=== PATIENT | male | born 1935 | race Hispanic/Latino ===

== ENCOUNTER 2016-10-09 10:17 | Inpatient (IN) | payer MEDICARE, BC ==
--- NOTE | 2016-10-09 10:34 | ED PDOC ---
Arrival/HPI - General Chief Complaint: Dizziness/Lightheaded Time Seen by Provider: 10/09/16 10:18 Historian: Patient - History of Present Illness Narrative History of Present Illness (Text): 10/09/16 10:31 Nishant Duggan, a 81 year old male, whose past medical history includes seizures (on Dilantin), is brought to the emergency department by EMS because of dizziness. Patient reports he felt "room spinning" a few hours ago. Patient denies any pain, nausea, vomiting, or any other complaints at this time. Time/Duration: 1-3 hours Symptom Onset: Sudden Symptom Course: Unchanged Activities at Onset: Rest Modifying Factors (Text): none Context: Home Associated Symptoms (Text): none Past Medical History - Provider Review Nursing Documentation Reviewed: Yes - Infectious Disease Hx of Infectious Diseases: None - Tetanus Immunization Tetanus Immunization: Unknown - Neurological Hx Seizures: Yes - Psychiatric Hx Depression: No Hx Emotional Abuse: No Hx Physical Abuse: No Hx Substance Use: No - Anesthesia Hx Anesthesia: No Hx Anesthesia Reactions: No Hx Malignant Hyperthermia: No - Suicidal Assessment Feels Threatened In Home Enviroment: No Family/Social History - Physician Review Nursing Documentation Reviewed: Yes Family/Social History: No Known Family HX Smoking Status: Never Smoked Hx Alcohol Use: No Hx Substance Use: No Hx Substance Use Treatment: No Allergies/Home Meds Allergies/Adverse Reactions: Allergies No Known Allergies Allergy (Verified 10/09/16 10:24) Home Medications: Home Meds Medication Instructions Recorded Confirmed Aspirin 81 mg PO DAILY 08/01/12 10/09/16 Gabapentin [Neurontin] 1,200 mg PO DAILY 08/01/12 10/09/16 Phenytoin Sodium Extended 400 mg PO DAILY 08/01/12 10/09/16 [Dilantin] Review of Systems - Physician Review All systems were reviewed & negative as marked: Yes - Review of Systems Cardiovascular: absent: Chest Pain Gastrointestinal: absent: Abdominal Pain, Nausea, Vomiting Neurological: Dizziness Physical Exam Vital Signs Reviewed: Yes Vital Signs Temp Pulse Resp BP Pulse Ox 10/09/16 11:40 73 16 124/68 97 10/09/16 10:17 97.5 F L 79 17 103/57 L 97 - Systems Exam Head: Present: Atraumatic, Normocephalic Pupils: Present: Other (horizontal nystagmus) Extroacular Muscles: Present: EOMI Conjunctiva: Present: Normal Mouth: Present: Moist Mucous Membranes Neck: Present: Normal Range of Motion Respiratory/Chest: Present: Clear to Auscultation, Good Air Exchange. No: Respiratory Distress, Accessory Muscle Use Cardiovascular: Present: Regular Rate and Rhythm, Normal S1, S2. No: Murmurs Abdomen: Present: Normal Bowel Sounds. No: Tenderness, Distention, Peritoneal Signs Upper Extremity: Present: Normal Inspection. No: Cyanosis, Edema Lower Extremity: Present: Normal Inspection. No: Edema Neurological: Present: GCS=15, CN II-XII Intact, Speech Normal, Motor Func Grossly Intact, Normal Sensory Function, Normal Cerebellar Funct, Other ((+) horizontal nystagmus) Skin: Present: Warm, Dry, Normal Color. No: Rashes Psychiatric: Present: Alert, Oriented x 3, Normal Insight, Normal Concentration Medical Decision Making ED Course and Treatment: 10/09/16 10:35 Impression:vertigo r/o central vs peripheral Differential Diagnosis include but are not limited to: Plan: -- EKG -- CT head -- Chest Xray -- Urinalysis -- Labs -- Reassess and disposition Prior Visits: Notes and results from previous visits were reviewed. Patient reported to the emergency department on 08/01/12 for evaluation of slip and fall incident. Progress Notes: EKG: Ordered, reviewed, and independently interpreted the EKG. Rate : 85 BPM Rhythm : NSR Interpretation : No ST/T changes Comparison : No previous EKG for comparison. Chest Xray: Creator : Brian No MD FINDINGS: LUNGS: Marked elevation left hemidiaphragm could represent eventration and/or sequela of subpulmonic effusion ; clinical correlation recommended. . Compressive type atelectasis left lung base. Small calcified granuloma left lung apex again noted. PLEURA: No apparent pneumothorax. CARDIOVASCULAR: Heart size is difficult to assess due to silhouetting left cardiac border OSSEOUS STRUCTURES: No significant abnormalities. VISUALIZED UPPER ABDOMEN: Normal. OTHER FINDINGS: None. IMPRESSION: Marked elevation left hemidiaphragm could represent eventration and/ or sequela of subpulmonic effusion ; clinical correlation recommended. Compressive type atelectasis left lung base. Small calcified granuloma left lung apex again noted. CT head: Creator : Brian No MD FINDINGS: HEMORRHAGE: No acute parenchymal, subarachnoid or extra-axial hemorrhage. BRAIN: Minor chronic periventricular white matter ischemic changes. No acute intracranial hemorrhage. Minor chronic white matter ischemic changes. Suspected few scattered bilateral basal nuclei and brainstem lacunar type infarcts Moderate generalized volume loss with enlargement of the ventricles and sulci VENTRICLES: Ex vacuo dilatation of the ventricles due to volume loss. No evidence of obstructive hydrocephalus. CALVARIUM: No acute calvarial fracture seen. Note made of a small elliptical shaped nonspecific density within the left occipito parietal scalp. PARANASAL SINUSES: Complete opacification right maxillary antrum with linear and polypoid like mucosal thickening left maxillary antrum. There is mild moderate mucosal thickening also seen within the right ethmoid air complex opacification of a few left sided ethmoid air cells. Mucosal thickening extends superiorly into the inferior margins of the frontal sinus. . There is also asymmetry of the nasal mucosa of right-sided which is hypertrophied in appearance. Direct visualization may be prudent for further evaluation to exclude nasal polyps. MASTOID AIR CELLS: Unremarkable as visualized. No inflammatory changes. OTHER FINDINGS: Note is made of a small elliptical shaped density with peripheral calcified appearance abutting and/or arising from the nasal bones. Rule out prior rhinoplasty versus posttraumatic on sequela. . IMPRESSION: No acute intracranial hemorrhage. Minor chronic white matter ischemic changes. Suspected few scattered bilateral basal nuclei and brainstem lacunar type infarcts Mucosal thickening changes seen within the aforementioned paranasal sinuses. 10/09/16 11:57 pt with persistent symptoms, will need neuro eval to r/o posterior cva - Lab Interpretations Lab Results: 10/09/16 10:38 10/09/16 10:38 Lab Results 10/09/16 10:38: WBC 8.2, RBC 4.50, Hgb 13.4 L, Hct 39.9 L, MCV 88.7, MCH 29.8, MCHC 33.6, RDW 14.1, Plt Count 249, MPV 9.6, Gran % 65.6, Lymph % (Auto) 17.3 L , Winkler % (Auto) 9.4 H, Eos % (Auto) 7.2 H, Baso % (Auto) 0.5, Gran # 5.38, Lymph # 1.4, Winkler # 0.8 H, Eos # 0.6, Baso # 0.04, PT 12.9 H, INR 1.19 H, APTT 26.1, Sodium 137, Potassium 4.5, Chloride 103, Carbon Dioxide 23, Anion Gap 16, BUN 16, Creatinine 1.0, Est GFR ( Amer) > 60, Est GFR (Non-Af Amer) > 60 , Random Glucose 127 H, Calcium 8.7, Magnesium 1.9, Total Bilirubin 0.5, AST 30 , ALT 30, Alkaline Phosphatase 160 H, Lactate Dehydrogenase 426, Total Creatine Kinase 36, Troponin I < 0.01, Total Protein 7.8, Albumin 3.8, Globulin 4.0, Albumin/Globulin Ratio 1.0 L, Phenytoin 13 - RAD Interpretation Radiology Orders: 10/09/16 10:27 HEAD W/O CONTRAST [CT] Stat 10/09/16 10:28 CHEST PORTABLE [RAD] Stat - EKG Interpretation Interpreted by ED Physician: Yes Type: 12 lead EKG - Medication Orders Current Medication Orders: Aspirin (Ecotrin) 81 mg PO DAILY [facility] Fludrocortisone Acetate (Florinef) 0.1 mg PO DAILY [facility]LEN[facility] Last Admin: 10/10/16 11:03 Dose: 0.1 MG Gabapentin (Neurontin) 1,200 mg PO DAILY [facility] Dextrose/Sodium Chloride (Dextrose 5%/0.9% Ns 1000 Ml) 1,000 mls @ 60 mls/hr IV [id number] MARLENE Stop: 10/10/16 17:54 Last Admin: 10/10/16 01:18 Dose: 60 MLS/HR eMAR Start Stop Document 10/10/16 01:18 LEATHA (Rec: 10/10/16 01:19 LEATHA [id number]) Intravenous Solution Start Date 10/10/16 Start Time 01:18 Phenytoin Sodium (Dilantin) 400 mg PO DAILY [facility] Discontinued Medications Aspirin (Aspirin) 325 mg PO STAT STA Stop: 10/09/16 11:48 Last Admin: 10/09/16 11:59 Dose: 325 MG Aspirin (Aspirin Chewable) 81 mg PO DAILY [facility] Last Admin: 10/10/16 09:23 Dose: 81 MG Gabapentin (Neurontin) 300 mg PO TID [facility]E PRN Reason: Protocol Last Admin: 10/09/16 14:27 Dose: 300 MG Behavioural Document 10/09/16 14:27 DL (Rec: 10/09/16 14:27 DL [id number]) Maintenance Maintenance Dose Yes Gabapentin (Neurontin) 300 mg PO QID [facility]LENE PRN Reason: Protocol Last Admin: 10/10/16 09:23 Dose: 300 MG Dextrose/Sodium Chloride (Dextrose 5%/0.9% Ns 1000 Ml) 1,000 mls @ 200 mls/hr IV .Q5H MARLENE Stop: 10/09/16 14:35 Last Admin: 10/09/16 14:25 Dose: 200 MLS/HR eMAR Start Stop Document 10/09/16 14:25 DL (Rec: 10/09/16 14:25 DL [id number]) Intravenous Solution Start Date 10/09/16 Start Time 13:45 Iohexol (Omnipaque 350 150 Ml) Confirm Administered Dose 150 ml .ROUTE .STK-MED ONE Stop: 10/10/16 13:10 Meclizine HCl (Antivert) 50 mg PO STAT STA Stop: 10/09/16 10:32 Last Admin: 10/09/16 10:47 Dose: 50 MG Non-Formulary Medication (Aspirin [Aspirin]) 81 mg PO DAILY MARLENE Non-Formulary Medication (Gabapentin [Neurontin]) 1,200 mg PO DAILY [facility] Phenytoin (Dilantin) 400 mg PO DAILY [facility] Phenytoin (Dilantin) 200 mg PO BID [facility]LENE Last Admin: 10/10/16 09:23 Dose: 200 MG NIHSS Scale ([place]) Time Performed: 11:48 - How Severe is the Stoke Baseline Level of Consciousness: 0=Alert LOC to Questions: 0=Both comments correct LOC to commands: 0=Obeys both correctly Best Gaze: 0=Normal Visual: 0=No visual loss Facial: 0=Normal Motor Arm - Left: 0=No drift Motor Arm - Right: 0=No drift Motor Leg - Left: 0=No drift Motor Leg - Right: 0=No drift Limb Ataxia: 0=Absent Sensory: 0=Normal Best Language: 0=No aphasia Dysarthia: 0=Normal articulation Extinction & Inattention (Neglect): 0=Normal, no object Score: 0 Risk Level: No Stroke Risk rTPA Inclusion/Exclusion - Refusal of Treatment Patient Refused Treatment: No - Inclusion Criteria for Altepase Patient is 18 years or Older: Yes The Clinical Diagnosis of Ischemic Stroke That is Causing a Potentially Disabling Neurological Deficit: No Time of Onset is Well Established to be Less Than 270 Minute Before Treatment Would Begin: Yes Risk/Benefit Discussed With Patient/Family Member Present: No - Scribe Statement The provider has reviewed the documentation as recorded by the Scribe Patricia Breaux All medical record entries made by the Yovaniibe were at my direction and personally dictated by me. I have reviewed the chart and agree that the record accurately reflects my personal performance of the history, physical exam, medical decision making, and the department course for this patient. I have also personally directed, reviewed, and agree with the discharge instructions and disposition. Disposition/Present on Arrival - Present on Arrival Any Indicators Present on Arrival: No History of DVT/PE: No History of Uncontrolled Diabetes: No Urinary Catheter: No History of Decub. Ulcer: No History Surgical Site Infection Following: None - Disposition Have Diagnosis and Disposition been Completed?: Yes Diagnosis: Vertigo Disposition: HOSPITALIZED Disposition Time: 11:49 Patient Problems: Current Active Problems Problem Status Diagnosed Vertigo Acute Condition: STABLE
[2016-10-09 10:39] LABS: ADD MANUAL DIFF? NO
[2016-10-09 10:42] LABS: BASO # 0.04 K/mm3 (0.0-2.0); BASO % 0.5 % (0.0-3.0); EOS # 0.6 (0.0-0.7); EOS % 7.2 % (1.5-5.0); GRAN # 5.38 (1.4-6.5); GRAN % 65.6 % (50.0-68.0); HEMATOCRIT 39.9 % (42.0-52.0); LYMPH # 1.4 (1.2-3.4); LYMPH % 17.3 % (22.0-35.0); MEAN CELL VOLUME 88.7 fL (80.0-105.0); MEAN CORPUSCULAR HEMOGLOBIN 29.8 pg (25.0-35.0); MEAN CORPUSCULAR HGB CONC 33.6 g/dl (31.0-37.0); MEAN PLATELET VOLUME 9.6 fl (7.0-11.0); MONO # 0.8 (0.1-0.6); MONO % 9.4 % (1.0-6.0); PLATELET COUNT 249 10^3/uL (120.0-450.0); RED CELL DISTRIBUTION WIDTH 14.1 % (11.5-14.5); WHITE BLOOD COUNT 8.2 10^3/ul (4.5-11.0)
[2016-10-09 10:51] LABS: INR 1.19 (0.93-1.08); PARTIAL THROMBOPLASTIN TIME 26.1 Seconds (23.7-30.8)
[2016-10-09 11:09] LABS: ALKALINE PHOSPHATASE 160 U/L (38-133); ALT/SGPT 30 U/L (7-56); AST/SGOT 30 U/L (15-59); BILIRUBIN,TOTAL 0.5 mg/dL (0.2-1.3); BLOOD UREA NITROGEN 16 mg/dL (7-21); CALCIUM 8.7 mg/dL (8.4-10.5); CARBON DIOXIDE 23 mmol/L (21-33); CHLORIDE 103 mmol/L (98-107); GFR AFRICAN-AMERICAN > 60; GLUCOSE,RANDOM 127 mg/dL (70-110); MAGNESIUM 1.9 mg/dL (1.7-2.2); POTASSIUM 4.5 mmol/L (3.6-5.0); SODIUM 137 mmol/L (132-148); TOTAL PROTEIN 7.8 g/dL (5.8-8.3)
[2016-10-09 11:21] LABS: TROPONIN I < 0.01 ng/mL
--- NOTE | 2016-10-09 11:40 | CT ---
PROCEDURE: CT HEAD WITHOUT CONTRAST. HISTORY: dizziness COMPARISON: None available. TECHNIQUE: Axial computed tomography images were obtained through the head/brain without int Radiation dose: Total exam DLP = 774.23 MGy-cm. This CT exam was performed using one or more of the following dose reduction techniques: Automated exposure control, adjustment of the mA and/or kV according to patient size, and/or use of iterative reconstruction technique. FINDINGS: HEMORRHAGE: No acute parenchymal, subarachnoid or extra-axial hemorrhage. BRAIN: Minor chronic periventricular white matter ischemic changes. No acute intracranial hemorrhage. Minor chronic white matter ischemic changes. Suspected few scattered bilateral basal nuclei and brainstem lacunar type infarcts Moderate generalized volume loss with enlargement of the ventricles and sulci VENTRICLES: Ex vacuo dilatation of the ventricles due to volume loss. No evidence of obstructive hydrocephalus. CALVARIUM: No acute calvarial fracture seen. Note made of a small elliptical shaped nonspecific density within the left occipito parietal scalp. The PARANASAL SINUSES: Complete opacification right maxillary antrum with linear and polypoid like mucosal thickening left maxillary antrum. There is mild moderate mucosal thickening also seen within the right ethmoid air complex opacification of a few left sided ethmoid air cells. Mucosal thickening extends superiorly into the inferior margins of the frontal sinus. . There is also asymmetry of the nasal mucosa of right-sided which is hypertrophied in appearance. Direct visualization may be prudent for further evaluation to exclude nasal polyps. MASTOID AIR CELLS: Unremarkable as visualized. No inflammatory changes. OTHER FINDINGS: Note is made of a small elliptical shaped density with peripheral calcified appearance abutting and/or arising from the nasal bones. Rule out prior rhinoplasty versus posttraumatic on sequela. . IMPRESSION: No acute intracranial hemorrhage. Minor chronic white matter ischemic changes. Suspected few scattered bilateral basal nuclei and brainstem lacunar type infarcts Mucosal thickening changes seen within the aforementioned paranasal sinuses.
--- NOTE | 2016-10-09 12:00 | RAD ---
HISTORY: weakness COMPARISON: No prior studies available for comparison however correlation made with right and left shoulders dated 09/28/2012 which also partially imaged both lung apices. FINDINGS: LUNGS: Marked elevation left hemidiaphragm could represent eventration and/or sequela of subpulmonic effusion ; clinical correlation recommended. . Compressive type atelectasis left lung base. Small calcified granuloma left lung apex again noted. PLEURA: No apparent pneumothorax. CARDIOVASCULAR: Heart size is difficult to assess due to silhouetting left cardiac border OSSEOUS STRUCTURES: No significant abnormalities. VISUALIZED UPPER ABDOMEN: Normal. OTHER FINDINGS: None. IMPRESSION: Marked elevation left hemidiaphragm could represent eventration and/or sequela of subpulmonic effusion ; clinical correlation recommended. . Compressive type atelectasis left lung base. Small calcified granuloma left lung apex again noted.
[2016-10-09] MEDS ORDERED: Dextrose 5%/0.9% NS 1,000 ML IV SCH (13:45)
[2016-10-09 13:55] VITALS: BMI 24.3
[2016-10-09] MEDS: Phenytoin 100 mg/4 ml Oral Susp UD PO SCH (19:04)
--- NOTE | 2016-10-10 00:53 | CP.PCM.PN ---
Subjective - Date & Time of Evaluation Date of Evaluation: 10/10/16 Time of Evaluation: 00:51 - Subjective Subjective: Patient was seen for BP 97/41. He has no symptom. Denies chest pain, sob, nausea, sweating , palpitation, bleeding in stool, urine or vomiting. Had 1L D5NS earlier in day time for BP of 80/50 at about 1.45 PM. Medical record was reviewed. This 81 year old white male was admitted with dizziness. Has PMH of seizure disorder. Objective - Vital Signs/Intake and Output Vital Signs (last 24 hours): Temp Pulse Resp BP Pulse Ox 98.1 F 82 20 80/50 L 97 10/09/16 13:40 10/09/16 13:40 10/09/16 13:40 10/09/16 13:40 10/09/16 12:24 Intake and Output: 10/09/16 10/10/16 18:59 06:59 Intake Total 420 Output Total 800 Balance -380 - Medications Medications: Current Medications Aspirin (Aspirin Chewable) 81 mg PO DAILY [facility] Gabapentin (Neurontin) 300 mg PO QID [facility] PRN Reason: Protocol Last Admin: 10/09/16 21:37 Dose: 300 mg Phenytoin (Dilantin) 200 mg PO BID [facility] Last Admin: 10/09/16 19:04 Dose: 200 mg - Labs Labs: PT 12.9 Seconds (9.9-11.8) H 10/09/16 10:38 INR 1.19 (0.93-1.08) H 10/09/16 10:38 APTT 26.1 Seconds (23.7-30.8) 10/09/16 10:38 - Constitutional Appears: Well, No Acute Distress - Head Exam Head Exam: ATRAUMATIC, NORMAL INSPECTION, NORMOCEPHALIC - Eye Exam Eye Exam: Normal appearance - ENT Exam ENT Exam: Normal External Ear Exam - Neck Exam Neck Exam: Normal Inspection - Respiratory Exam Respiratory Exam: NORMAL BREATHING PATTERN - Cardiovascular Exam Cardiovascular Exam: absent: JVD - GI/Abdominal Exam GI & Abdominal Exam: absent: Distended - Rectal Exam Rectal Exam: Deferred - Extremities Exam Extremities Exam: Normal Inspection - Back Exam Back Exam: NORMAL INSPECTION - Neurological Exam Neurological Exam: Alert, Oriented x3 - Psychiatric Exam Psychiatric exam: Normal Affect, Normal Mood - Skin Skin Exam: Normal Color Assessment and Plan - Assessment and Plan (Free Text) Assessment: A/P:Dizziness. Hypotension. Hx Seizure disorder. Borderline anemia. 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 History ASHD. History Carotid artery occlusion. Continue D5NS @ 60 CC/Hr-1L. CBC,BMP, troponin, EKG stat. EKG:NSR, 1* AV block -new. Old inf wall CA? H & H have dropped insignificantly, will repeat CBC in AM. Trop <0.01.
[2016-10-10] MEDS ORDERED: Dextrose 5%/0.9% NS 1,000 ML IV SCH (01:15)
[2016-10-10 01:34] LABS: ADD MANUAL DIFF? NO
[2016-10-10 01:48] LABS: BASO # 0.03 K/mm3 (0.0-2.0); BASO % 0.5 % (0.0-3.0); EOS # 0.6 (0.0-0.7); EOS % 10.1 % (1.5-5.0); GRAN # 3.25 (1.4-6.5); GRAN % 56.9 % (50.0-68.0); HEMATOCRIT 37.4 % (42.0-52.0); LYMPH # 1.3 (1.2-3.4); LYMPH % 22.7 % (22.0-35.0); MEAN CELL VOLUME 88.8 fL (80.0-105.0); MEAN CORPUSCULAR HEMOGLOBIN 29.5 pg (25.0-35.0); MEAN CORPUSCULAR HGB CONC 33.2 g/dl (31.0-37.0); MEAN PLATELET VOLUME 9.5 fl (7.0-11.0); MONO # 0.6 (0.1-0.6); MONO % 9.8 % (1.0-6.0); PLATELET COUNT 208 10^3/uL (120.0-450.0); RED CELL DISTRIBUTION WIDTH 14.2 % (11.5-14.5); WHITE BLOOD COUNT 5.7 10^3/ul (4.5-11.0)
[2016-10-10 01:49] LABS: BLOOD UREA NITROGEN 14 mg/dL (7-21); CALCIUM 8.4 mg/dL (8.4-10.5); CARBON DIOXIDE 25 mmol/L (21-33); CHLORIDE 104 mmol/L (98-107); GFR AFRICAN-AMERICAN > 60; GLUCOSE,RANDOM 107 mg/dL (70-110); POTASSIUM 4.5 mmol/L (3.6-5.0); SODIUM 136 mmol/L (132-148)
[2016-10-10 02:29] LABS: TROPONIN I < 0.01 ng/mL
[2016-10-10 07:06] LABS: ADD MANUAL DIFF? NO
[2016-10-10 07:18] LABS: BASO # 0.03 K/mm3 (0.0-2.0); BASO % 0.6 % (0.0-3.0); EOS # 0.6 (0.0-0.7); EOS % 12.5 % (1.5-5.0); GRAN # 2.53 (1.4-6.5); GRAN % 52.9 % (50.0-68.0); HEMATOCRIT 35.3 % (42.0-52.0); LYMPH # 1.1 (1.2-3.4); LYMPH % 22.3 % (22.0-35.0); MEAN CELL VOLUME 88.3 fL (80.0-105.0); MEAN CORPUSCULAR HGB CONC 32.9 g/dl (31.0-37.0); MEAN PLATELET VOLUME 9.5 fl (7.0-11.0); MONO # 0.6 (0.1-0.6); MONO % 11.7 % (1.0-6.0); PLATELET COUNT 207 10^3/uL (120.0-450.0); RED CELL DISTRIBUTION WIDTH 14.2 % (11.5-14.5); WHITE BLOOD COUNT 4.8 10^3/ul (4.5-11.0)
[2016-10-10] MEDS: Phenytoin 100 mg/4 ml Oral Susp UD PO SCH (09:23)
--- NOTE | 2016-10-10 09:31 | CARD ---
APPROVED REPORT EKG Measurement Heart [id number] <Conclusion> Normal sinus rhythm Inferior infarct, age undetermined NSSTW changes Mildly prolonged QTc
[2016-10-10 09:42] LABS: URINE BILIRUBIN NEGATIVE (NEGATIVE); URINE BLOOD NEGATIVE (NEGATIVE); URINE GLUCOSE (UA) NEGATIVE (NEGATIVE); URINE KETONE NEGATIVE (NEGATIVE); URINE LEUKOCYTE ESTERASE NEGATIVE Leu/uL (NEGATIVE); URINE PROTEIN NEGATIVE mg/dL (<30 mg/dL); URINE UROBILINOGEN 0.2 E.U./dL (<1 E.U./dL)
[2016-10-10 09:52] LABS: URINE APPEARANCE CLEAR (CLEAR); URINE COLOR YELLOW (YELLOW)
[2016-10-10] MEDS ORDERED: Phenytoin 100 mg/4 ml Oral Susp UD PO SCH (10:00)
--- NOTE | 2016-10-10 10:14 | CARD ---
APPROVED REPORT EKG Measurement Heart [id number] <Conclusion> Sinus rhythm with 1st degree AV block Otherwise normal ECG
--- NOTE | 2016-10-10 13:45 | MRI ---
PROCEDURE: MRI BRAIN WITHOUT CONTRAST HISTORY: lacunar infarcts COMPARISON: Comparison made with the CT scan of the brain 10/09/2016. TECHNIQUE: Multiplanar, multisequence MR images of the brain were obtained without intravenous contrast enhancement. . Note the examination is limited by motion artifact. FINDINGS: HEMORRHAGE: No acute parenchymal, subarachnoid nor extra-axial hemorrhage. No hemosiderin deposits seen on GRE weighted sequence. DWI: No evidence of an acute or early subacute infarctions seen on GE weighted images. BRAIN PARENCHYMA: Some very minimal periventricular white matter changes with a tiny chronic lacunar the right posterolateral basal ganglia. None of these changes exhibit restricted diffusion. No obvious parenchymal nor extra-axial mass or collection identified on this noncontrast study. No edema seen. VENTRICLES: Mild generalized volume loss with enlargement of the ventricles on than sulci. CRANIUM: Calvarium is unremarkable. ORBITS: Orbits and contents normal. PARANASAL SINUSES/MASTOIDS: Re- demonstrated is complete opacification right maxillary antrum with which appears to be associated with mild bowing medial wall. Rule out mucocele or possibly antral choanal polyp. . Mucosal hypertrophy right nasal cavity. Rule out nasal polyps. There is also opacification of a few ethmoid air cells and prominence of the right nasal mucosa . There is also mild mucosal thickening several left ethmoid air cells with mucosal thickening in the frontal sinus and left maxillary antrum. . ENT consultation suggested. VASCULAR SYSTEM: Visualized major vascular flow voids at skull base patent. OTHER FINDINGS: None. IMPRESSION: Limited motion degraded study. No acute intracranial hemorrhage or infarct. Minimal chronic periventricular white matter ischemic changes with tiny chronic appearing lacunar type infarct right posterolateral basal ganglia. Mild generalized volume loss. Re- demonstrated is complete opacification right maxillary antrum with which appears to be associated with mild bowing medial wall. Rule out mucocele or possibly antral choanal polyp. . Mucosal hypertrophy right nasal cavity. Rule out nasal polyps. There is also opacification of a few ethmoid air cells and prominence of the right nasal mucosa . There is also mild mucosal thickening several left ethmoid air cells with mucosal thickening in the frontal sinus and left maxillary antrum. . ENT consultation suggested.
--- NOTE | 2016-10-10 18:04 | CON ---
DATE: 10/10/2016 CHIEF COMPLAINT: Dizziness and lightheadedness. HISTORY OF PRESENT ILLNESS: This is a 81-year-old man with past medical history of seizures on Geovanni tin, was therapeutic today, his Dilantin level was slightly on the lower side of 8, he came in with a therapeutic level of 13 who presented with dizziness in terms of a spinning sensation of the room al maegan with lightheadedness. He has positive orthostatic vital signs as well and has been placed on Bryan rinef 0.1 mg p.o. daily. He is also on Neurontin 1200 mg p.o. daily for seizure prophylaxis. He is on aspirin for stroke prophylaxis as well. Currently, his dizziness is much better in terms of spinn ing sensation of the room and is less left lightheaded, no recent seizures. His MRI of the brain holland wed no acute intracranial abnormalities, just chronic lacunar type infarcts in the right posterior la teral basal ganglia and has opacification of right maxillary antrum and mucosal hypertrophy of his ri ght nasal cavity and does complain that the right side of his nose has been blocked and he has tried various nasal sprays, but has not had any relief. Currently, he is moving all extremities without an y difficulty and no weakness or paresthesias elicited. PAST MEDICAL HISTORY: Seizure disorder, on Dilantin and gabapentin; dyslipidemia. FAMILY HISTORY: Noncontributory. SOCIAL HISTORY: No illicit drug use, smoking, or EtOH abuse. ALLERGIES: No known drug allergies. CURRENT MEDICATIONS: Reviewed via nurse's reconciliation sheet. REVIEW OF SYSTEMS: A 14-point review of systems is negative except for the HPI. PHYSICAL EXAMINATION: VITAL SIGNS: Temperature 98.3, pulse rate of 72, blood pressure 115/58, respiratory rate 17, oxygen 97% on room air. GENERAL: The patient is sitting up in bed in no acute distress. HEENT: Atraumatic, normocephalic. PERRLA. Extraocular muscles intact. NECK: Supple, no JVD, no adenopathy noted. LUNGS: Clear to auscultation. No adventitious sounds. HEART: S1, S2, normal rate and rhythm. No murmurs, rubs, or gallops. ABDOMEN: Soft, nontender, nondistended. Bowel sounds are present. EXTREMITIES: No clubbing, no cyanosis. Peripheral pulses 2+ felt bilaterally. NEUROLOGIC: The patient is alert, oriented to person, place, month and year. Speech is fluent, with out any errors. Recall after 5 minutes is /3. thought process. Cranial nerves II-XII intact . Motor: Moves all extremities equally. Toes downgoing bilaterally. No pronator drift seen. Sens ory: Light touch, pinprick, proprioception, vibration is intact. DTRs 2+ throughout and 1 at the an kles. Coordination: [id number] intact. No tremors elicited. Gait is deferred for now. LABORATORY DATA: Sodium is 136, potassium 4.5, chloride 104, carbon dioxide of 25, BUN of 14, creati nine 0.9, random glucose 107. ASSESSMENT AND PLAN: This is a 81-year-old man with history of seizures on gabapentin 1200 mg daily and Dilantin of 400 mg p.o. daily, who came in with dizziness in terms of lightheadedness as well as a spinning sensation component. Currently, his symptoms have subsided, but does have orthostatic pos itive vital signs indicating orthostatic hypotension. He is on Florinef 0.1 mg p.o. daily. His MRI of the brain just showed old chronic lacunar scarred infarcts in the right posterior lateral basal ga nglia and opacification of his right maxillary sinus for the reason causing him to have right nasal b lockage with no relief from nasal sprays. Currently, he is no longer dizzy. At this time, his dizzi ness is more of a combination of orthostatic hypotension with a mild positional vertigo. Recommend: 1. Outpatient vestibular therapy. 2. Aspirin 81 mg p.o. daily. 3. Continue Florinef 0.1 mg p.o. daily for orthostatic hypotension. 4. In regards to seizure history on Neurontin, continue Neurontin 1200 mg p.o. daily and Dilantin 40 0 mg p.o. daily. 5. ENT consult as an outpatient for his underlying right maxillary opacification/mucosal thickening. At this time, continue current present medical management. He is clinically stable from my standpo int. Please reconsult if necessary. Jaziel Ordonez MD cc: [id number] TT: 10/10/2016 18:03:26 Confirmation # [id number] Dictation # [id number]
--- NOTE | 2016-10-10 18:10 | US ---
PROCEDURE: Bilateral carotid artery duplex ultrasound HISTORY: Carotid stenosis dizziness PHYSICIAN(S): Mike Mccauley MD. TECHNIQUE: Duplex sonography and color-flow Doppler were used to evaluate the carotid bifurcations and limited segments of the vertebral arteries bilaterally. The exam is somewhat limited by tortuous vessels. FINDINGS: There is moderate diffuse heterogeneous plaque noted at the carotid bifurcations bilaterally. The peak systolic velocity in the proximal right internal carotid artery is 148 cm/sec. This corresponds to a 40-59 percent proximal right ICA stenosis. Normal systolic velocities are noted in the proximal right external carotid artery. There is antegrade flow in the right vertebral artery. The peak systolic velocity in the proximal left internal carotid artery is 137 cm/sec. This corresponds to a 40-59 percent proximal left ICA stenosis. Normal systolic velocities are noted in the proximal left external carotid artery. There is antegrade flow in the left vertebral artery. IMPRESSION: 1. 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 2. Antegrade flow in both vertebral arteries.
[2016-10-11 07:14] LABS: MEAN CELL VOLUME 88.9 fL (80.0-105.0); MEAN CORPUSCULAR HEMOGLOBIN 29.6 pg (25.0-35.0); MEAN CORPUSCULAR HGB CONC 33.2 g/dl (31.0-37.0); MEAN PLATELET VOLUME 9.6 fl (7.0-11.0); RED CELL DISTRIBUTION WIDTH 14.5 % (11.5-14.5); WHITE BLOOD COUNT 5.2 10^3/ul (4.5-11.0)
[2016-10-11 07:25] LABS: BLOOD UREA NITROGEN 15 mg/dL (7-21); CALCIUM 8.3 mg/dL (8.4-10.5); CARBON DIOXIDE 27 mmol/L (21-33); CHLORIDE 103 mmol/L (98-107); CHOLESTEROL 134 mg/dL (130-200); GFR AFRICAN-AMERICAN > 60; GLUCOSE,RANDOM 108 mg/dL (70-110); SODIUM 137 mmol/L (132-148)
[2016-10-11 07:46] VITALS: RESP 20
[2016-10-11] MEDS ORDERED: Non Formulary Medication (Aspirin [Aspirin] 81 MG) PO SCH (10:00)
[2016-10-11] MEDS ORDERED: GABAPENTIN 1200 MG PO SCH (10:00)
--- NOTE | 2016-10-11 10:12 | PN ---
DATE: 10/10/2016 The patient is a 81-year-old male who was admitted yesterday with possible lacunar infarcts. He had been complaining of dizziness. He stated that his legs simply gave way underneath him. He was found to have lacunar infarcts at the basal ganglia and sinusitis on CAT scan of the head. Neurology cons ult was called. When seen, he is awake, alert, and oriented. Laboratory studies are unremarkable. Of note is his blood pressure dropped markedly from 123/90 when supine to 66/41 when standing. [facility] on Florinef for orthostatic hypotension. We are awaiting results of carotid Dopplers and MRI of the brain to see if any of these lacunar infarcts are acute. Bryon Lewis MD cc: [phone] TT: 10/11/2016 10:11:52 Confirmation # [id number] Dictation # [id number] mn
--- NOTE | 2016-10-11 10:23 | HP ---
HISTORY OF PRESENT ILLNESS: The patient is a 81-year-old male with a long history of seizures, altho ugh he had not had a seizure for several years, who presents to the Emergency Room complaining of diz ziness. He felt the room was spinning. He felt his legs simply gave out underneath him. He was anita luated in the Emergency Room and admitted. PAST MEDICAL HISTORY: Positive only for the seizures as mentioned above. SOCIAL HISTORY: He never smoked. He is a nonalcoholic drinker. ALLERGIES: He has no known medical allergies. MEDICATIONS: At the time of admission, he was taking aspirin 81 mg once a day, gabapentin 400 mg 3 t imes a day and Dilantin 100 mg 4 times a day. REVIEW OF SYSTEMS: Otherwise, unremarkable. PHYSICAL EXAMINATION: GENERAL: The patient is awake, alert, oriented. VITAL SIGNS: His blood pressure is 103/57, heart rate is 79 and he is afebrile. HEENT: Unremarkable. NECK: Supple, with no lymphadenopathy, no goiter. LUNGS: Clear to auscultation and percussion. HEART: Regular, no murmurs are appreciated. ABDOMEN: Soft, nontender. Bowel sounds are normal. EXTREMITIES: Free of cyanosis, clubbing or edema. NEUROLOGIC: There is some nystagmus noted on lateral gaze; however, he denies dizziness at this time . Deep tendon reflexes are equal and bilateral. He is awake, alert, oriented. 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 His chest x-ray showed an elevated left hemidiaphragm with subsequent atelectasis. CA T scan of the head shows basal nuclear lacunar infarcts. The sinusitis is also noted. His white blo od cell count is 8.2, hemoglobin and hematocrit are 13.4 and 39.9 respectively, platelet count is 249 . His serum chemistries are unremarkable. Nonfasting glucose is 127. So the patient is admitted with a diagnosis of possible cerebrovascular accident/transient ischemic a ttack. Neurology consult is requested. The patient will be followed and reevaluated in the morning. Bryon Lewis MD cc: [phone] TT: 10/11/2016 10:23:02 mn
--- NOTE | 2016-10-12 08:21 | PN ---
DATE: 10/11/2016 The patient was seen this Monday, , in room 365, bed 1, sitting out of bed in a chair. Orthos tatic blood pressures were measured today, but are not noted as of yet. The patient feels well. He is awake, alert, clear, and appropriate. Workup so far has been negative. I spoke with the patient about his opacification in his maxillary sinus as noted on CT scan. The patient has had this for mos t of his life. He has not been able to breathe out of that nostril, and that sinus is always congest ed. He will follow up with ENT as an outpatient. I spoke with him about his orthostatic hypotension. This was diagnosed on an earlier admission. He was on Florinef, and he admits that perhaps on the days prior to admission his p.o. intake of fluid d ecreased. He does not restrict sodium intake at home. PHYSICAL EXAMINATION: Unremarkable. LUNGS: Clear. There is no neurologic deficit. HEART: Regular, not tachycardic. PLAN: Will change his diet to regular a regular diet, add salt, eliminating his sodium restriction. Continue Florinef, physical therapy, ambulation, and check orthostatic blood pressures again, and mo st likely discharge to home in the morning. FINAL DIAGNOSIS: Orthostatic hypotension. Leonardo Lewis MD cc: [id number] TT: 10/12/2016 08:20:39 Confirmation # [id number] Dictation # [id number] zahra
[2016-10-12] MEDS ORDERED: Sodium Chloride 0.9% 1,000 ML IV SCH (13:00)
--- NOTE | 2016-10-12 15:46 | CP.PCM.PCO ---
Physician Communication Note - Physician Communication Note Physician Communication Note: repeat orthostatic bp supine 133/76, sitting BP 105/68, standing 80/50
--- NOTE | 2016-10-13 04:09 | CP.PCM.PN ---
Subjective - Date & Time of Evaluation Date of Evaluation: 10/13/16 Time of Evaluation: 04:08 - Subjective Subjective: Nurse Aliya calls and tells irene BP is 135/83 mmHg. They were taking him to bathroom, momentarily bent forward and was out . Pulse ox-96% on RA. Complained of dizziness . Denies chest pain, sob, nausea, palpitation, sweating. Denies aura or feeling of having a seizure. VE-Rpruo-096/83 Sitting-112/70. This 81 year old white male was admitted dizziness, light headedness,borderline anemia. Has PMH of seizure disorder,dyslipidemia. Objective - Vital Signs/Intake and Output Vital Signs (last 24 hours): Temp Pulse Resp BP Pulse Ox 98.2 F 80 20 106/67 99 10/12/16 16:00 10/12/16 16:00 10/12/16 16:00 10/12/16 16:00 10/12/16 16:00 Intake and Output: 10/12/16 10/13/16 18:59 06:59 Intake Total 200 1340 Output Total 60 Balance 200 1280 - Medications Medications: Current Medications Aspirin (Ecotrin) 81 mg PO DAILY [facility] Last Admin: 10/12/16 09:30 Dose: 81 mg Fludrocortisone Acetate (Florinef) 0.1 mg PO BID [facility] Gabapentin (Neurontin) 300 mg PO QID [facility] PRN Reason: Protocol Last Admin: 10/12/16 22:09 Dose: 300 mg Sodium Chloride (Sodium Chloride 0.9%) 1,000 mls @ 100 mls/hr IV .Q10H [facility] Last Admin: 10/12/16 14:37 Dose: 100 mls/hr Phenytoin Sodium (Dilantin) 400 mg PO DAILY [facility] Last Admin: 10/12/16 09:30 Dose: 400 mg - Labs Labs: 10/11/16 06:30 10/11/16 06:30 PT 12.9 Seconds (9.9-11.8) H 10/09/16 10:38 INR 1.19 (0.93-1.08) H 10/09/16 10:38 APTT 26.1 Seconds (23.7-30.8) 10/09/16 10:38 - Constitutional Appears: Well, No Acute Distress - Head Exam Head Exam: ATRAUMATIC, NORMAL INSPECTION, NORMOCEPHALIC - Eye Exam Eye Exam: Normal appearance - ENT Exam ENT Exam: Normal External Ear Exam - Neck Exam Neck Exam: Normal Inspection - Respiratory Exam Respiratory Exam: NORMAL BREATHING PATTERN - Cardiovascular Exam Cardiovascular Exam: REGULAR RHYTHM. absent: JVD - GI/Abdominal Exam GI & Abdominal Exam: absent: Distended - Rectal Exam Rectal Exam: Deferred - Extremities Exam Extremities Exam: Normal Inspection - Back Exam Back Exam: NORMAL INSPECTION - Neurological Exam Neurological Exam: Alert, Oriented x3 - Psychiatric Exam Psychiatric exam: Normal Affect, Normal Mood - Skin Skin Exam: Normal Color, Warm Assessment and Plan - Assessment and Plan (Free Text) Assessment: A/P:Dizziness. Orthostsis? Seizure disorder. Dyslipidemia. Hypocalcemia. Borderline anemia. Subtherapeutic dilantin level. Will give dilantin 300 mg PO STAT. CBC. BMP,TSH, Hgb A1C, Mag,PHOS.
--- NOTE | 2016-10-13 07:12 | CON ---
DATE: 10/09/2016 REASON FOR CONSULTATION: Orthostatic hypotension, near syncope, status post fall. BRIEF CLINICAL HISTORY: This is a 81-year-old male with history of seizure disorder, history of ex-a lcohol abuser, came to the Emergency Room because of feeling very weak, legs gave out and patient fel l down. Denies any chest pain, denies shortness of breath, denies any palpitation. Feels dizziness on standing. PAST MEDICAL HISTORY: Significant for seizure disorder related to alcohol. The patient had heavy al cohol abuse in the past; quit in 1984. SOCIAL HISTORY: Never smoked. Heavy alcohol abuse, used to drink heavy until 1984. ALLERGIES: No known drug allergy. CURRENT MEDICATIONS: The patient is taking aspirin 81 mg daily, gabapentin and Neurontin. PAST SURGICAL HISTORY: Significant for nasal surgery 30 years ago in [place]. FAMILY HISTORY: Noncontributory. No history of coronary artery disease. REVIEW OF SYSTEMS: As per HPI. PHYSICAL EXAMINATION: VITAL SIGNS: Temperature afebrile, heart rate ____, blood pressure 134/76. The patient has orthosta tic hypotension: On lying down, blood pressure 134/73, sitting 113, standing 56/60. HEENT: PERRLA. Extraocular muscles intact. NECK: Supple. No carotid bruits. No thyromegaly. CHEST: Clear to auscultation. HEART: S1, S2 regular. ABDOMEN: Soft. EXTREMITIES: Clubbing and cyanosis negative. BLOOD WORKUP: WBC 5.2, hemoglobin 12.____, hematocrit 37, platelet count 223. Chemistry shows sodiu m ____, potassium 4, chloride 103, carbon dioxide 27, anion gap of 11, BUN 15, creatinine 1.0. Tropo armando 0.01. EKG shows normal sinus, first degree AV block. No acute ST-T changes noted. IMPRESSION: Orthostatic hypotension, history of alcohol abuse, borderline diabetes, seizure disorder . RECOMMENDATION: Will continue IV fluid. Start Florinef b.i.d. 1 dose now. Because of multiple risk factors for coronary artery disease and heavy alcohol abuse, suggest a stress test. Discussed with the patient. The patient had stress test 5 years ago; will do again, and echo to assess and rule out any structural heart disease. Will follow with you. Thank you, Dr. Lewis, for providing the opportunity in taking care of this patient. Also check lipid profile, TSH and hemoglobin A1c. Thank you, Dr. Lewis, for providing the opportunity in taking care of this patient. Holley Pleitez MD cc:Leonardo Lewis MD [id number] TT: 10/13/2016 07:11:24 Confirmation # [id number] Dictation # [id number] mn
[2016-10-13 07:49] LABS: ADD MANUAL DIFF? NO
[2016-10-13 07:52] LABS: BASO # 0.03 K/mm3 (0.0-2.0); BASO % 0.6 % (0.0-3.0); EOS # 0.5 (0.0-0.7); EOS % 9.3 % (1.5-5.0); GRAN # 3.09 (1.4-6.5); HEMATOCRIT 37.2 % (42.0-52.0); LYMPH # 0.9 (1.2-3.4); LYMPH % 17.3 % (22.0-35.0); MEAN CELL VOLUME 88.8 fL (80.0-105.0); MEAN CORPUSCULAR HEMOGLOBIN 29.1 pg (25.0-35.0); MEAN CORPUSCULAR HGB CONC 32.8 g/dl (31.0-37.0); MEAN PLATELET VOLUME 9.6 fl (7.0-11.0); MONO # 0.7 (0.1-0.6); MONO % 12.8 % (1.0-6.0); PLATELET COUNT 237 10^3/uL (120.0-450.0); RED CELL DISTRIBUTION WIDTH 14.4 % (11.5-14.5); WHITE BLOOD COUNT 5.2 10^3/ul (4.5-11.0)
[2016-10-13 08:35] LABS: BLOOD UREA NITROGEN 18 mg/dL (7-21); CALCIUM 8.6 mg/dL (8.4-10.5); CARBON DIOXIDE 28 mmol/L (21-33); CHLORIDE 103 mmol/L (98-107); GFR AFRICAN-AMERICAN > 60; GLUCOSE,RANDOM 104 mg/dL (70-110); MAGNESIUM 2.2 mg/dL (1.7-2.2); PHOSPHOROUS 4.1 mg/dL (2.5-4.5); POTASSIUM 4.7 mmol/L (3.6-5.0); SODIUM 138 mmol/L (132-148)
--- NOTE | 2016-10-13 12:04 | PN ---
DATE: 10/13/2016 REASON FOR CONSULTATION AND FOLLOWUP: Syncope, possible secondary to orthostatic hypotension. BRIEF CLINICAL HISTORY: This is a 81-year-old ex-alcohol abuse male, heavy alcohol abuse in the past , history of seizure disorder secondary related to alcohol, came to the Emergency Room because of fee ling very weak, lethargic and, according to patient, legs gave out. The patient has significant orth ostatic hypotension. The patient was scheduled for a stress test this morning for risk stratificatio n, but patient was going to the bathroom, nurse was taking him, and suddenly patient bent down/leaned forward into the wash basin, possibly became orthostatic, but the nurse was there so he did not pass out. The patient was scheduled for a stress test but it is on hold because of orthostatic hypotensi on. Yesterday, patient had significant orthostatic hypotension: Lying down 134/73 and it dropped to 56/23 on standing. Florinef increased to b.i.d. as well as IV fluids being given. Denies any dizzi ness this morning. EXAMINATION: VITAL SIGNS: Temperature afebrile, heart rate 70. Blood pressure 112/70 on ____, ____ 135/83. The nurses did not check for standing. HEENT: PERRLA. Extraocular muscles intact. NECK: Supple. No carotid bruits. No thyromegaly. CHEST: Clear to auscultation. HEART: S1, S2 regular. ABDOMEN: Soft. EXTREMITIES: Clubbing and cyanosis negative. BLOOD WORKUP: WBC 5.2, hemoglobin 12.2, hematocrit 37.2, platelet count 237. Chemistry shows sodium 138, potassium 4.7, chloride 103, carbon dioxide 28, anion gap of 12, BUN 18, creatinine 0.9. TSH 0 .94. Triglycerides 131, cholesterol 134, LDL 70, HDL 36. IMPRESSION: Orthostatic hypotension, seizure disorder secondary to alcohol related, history of heavy alcohol abuse. RECOMMENDATIONS: Wanted to do a stress this morning but patient became orthostatic and passing out, so we held this test because with IV Lasix the patient becomes more symptomatic/hypotension. Suggest ed echo to assess LV function. Continue Florinef 0.1 mg b.i.d. Continue IV fluid. Check for orthos tasis again. Discussed with the nursing staff taking care. Resume the diet. Consider a stress test as outpatient in 4-6 weeks when the patient has become stable for risk stratification. In the inter im, continue IV fluids and continue Florinef. Once the patient becomes euvolemic and stops orthostat ic hypotension, he can be discharged home. No cardiac complaints at this time. No history of angina and no symptoms of angina at this time. Will follow with you. Thank you, Dr. Lewis, for providing the opportunity in taking care of this patient. Holley Pleitez MD cc: [phone] TT: 10/13/2016 11:42:32 Confirmation # [id number] Dictation # [id number] oh 10/13/2016 11:03:28
--- NOTE | 2016-10-13 17:36 | CARD ---
APPROVED REPORT EXAM: Two-dimensional and M-mode echocardiogram with Doppler and color Doppler. INDICATION Cardiac Disease: CAD HYPOTENSION 2D DIMENSIONS Left Atrium (2D)3.2 (1.6-4.0cm)IVSd1.3 (0.7-1.1cm) LVDd3.2 (3.9-5.9cm)PWd1.2 (0.7-1.1cm) LVDs2.0 (2.5-4.0cm)FS (%) 37.1 % LVEF (%)68.5 (>50%) M-Mode DIMENSIONS Aortic Root3.60 (2.2-3.7cm)Aortic Cusp Exc.1.70 (1.5-2.0cm) Aortic Valve AoV Peak Gebjmdox966.0cm/Valerio Peak GR.10mmHg Mitral Valve MV E Umgcltdw14.7cm/sMV A Amirvbdd394.0cm/sE/A ratio0.8 TDI E/Lateral E'0.0E/Medial E'0.0 Tricuspid Valve TR Peak Jismvaob148kp/sRAP [id number] Peak Gr.22mmHg [id number] LEFT VENTRICLE The left ventricle is normal size. There is mild concentric left ventricular hypertrophy. The left ventricular function is normal.EF-60-65% There is normal LV segmental wall motion. Transmitral Doppler flow pattern is Grade III-reversible restrictive diastolic dysfunction. No left ventricle thrombus noted on this study. There is no ventricular septal defect visualized. There is no left ventricular aneurysm. There is no mass noted in the left ventricle. RIGHT VENTRICLE The right ventricle is normal size. There is normal right ventricular wall thickness. The right ventricular systolic function is normal. ATRIA The left atrium size is normal. The right atrium size is normal. The interatrial septum is intact with no evidence for an atrial septal defect. AORTIC VALVE The aortic valve is calcified but opens well. The aortic valve is moderately sclerotic. There is trace aortic regurgitation. There is no aortic valvular stenosis. There is no aortic valvular vegetation. MITRAL VALVE The mitral valve is thickened but opens well. Mitral regurgitation is trace. There is no mitral valve stenosis. There is no evidence of mitral valve prolapse. TRICUSPID VALVE The tricuspid valve leaflets are thickened , but open well. There is trace tricuspid regurgitation.RVSP-32 mmof Hg. There is no tricuspid valve stenosis. There is no tricuspid valve prolapse or vegetation. PULMONIC VALVE The pulmonary valve is normal in structure. GREAT VESSELS The aortic root is normal in size. The ascending aorta is normal in size. The pulmonary artery is normal. The IVC is normal in size and collapses >50% with inspiration. PERICARDIAL EFFUSION There is no pleural effusion. There is no pericardial effusion. <Conclusion> Normal Chamber Size. EF-60-65% Trace MR/TR RVSP-32 mmof Hg. No vegetation or thrombus noted.
[2016-10-13 20:08] VITALS: BP 139/73; TEMP 98; O2SAT 98
[2016-10-14 06:08] VITALS: PULSE 66
--- NOTE | 2016-10-14 14:01 | PN ---
DATE: 10/14/2016 The patient is in room 365, bed 1. REASON FOR CONSULTATION AND FOLLOWUP: Syncope, possibly secondary to orthostatic hypotension. HISTORY OF PRESENT ILLNESS: A 81-year-old, ex-alcohol abuse male, heavy alcohol abuse in the past wi th history of seizure disorder related to alcohol intake. Came to Emergency Room because of feeling very weak, lethargic and according to patient, legs gave out. The patient found to have significant orthostatic hypotension. The patient was scheduled for a stress test for risk stratification, but wh ile walking to bathroom with the nurse, he became orthostatic hypotensive and felt very dizzy and carlos t down, leaned forward into the wash basin, but he did not fall down. Nurse was able to hold him. S o, stress test was canceled and the patient will do stress test as an outpatient when his orthostatic hypotension is better. The patient denies chest pain, shortness of breath, palpitation. The patien t on admission, blood pressure lying down was 134/73 and dropped to 56/23 on standing. The patient s tarted on Florinef and dose was increased to 0.1 mg b.i.d. The patient was also given IV fluid. The patient's orthostatic hypotension is improving. Today, it was lying down 144/75, sitting down 137/7 6 and standing was 109/57 and with this pressure, patient was asymptomatic. PHYSICAL EXAMINATION: VITAL SIGNS: As mentioned before, blood pressure lying down 144/75, sitting 137/76, standing up 109/ 57, respirations 20, pulse 66. The patient is afebrile. HEAD: Normocephalic. EYES: Pupils normal. Conjunctivae slightly pale. NECK: JVP low. Carotid equal. THORAX: AP diameter normal. LUNGS: Clear. CARDIOVASCULAR: S1 and S2. ABDOMEN: Soft, no tenderness, no organomegaly. Bowel sounds normal. EXTREMITIES: No clubbing, no cyanosis. LABORATORIES: WBC 5.2, hemoglobin 12.2, hematocrit 37.2, platelet 237. Sodium 138, potassium 4.7, B UN 18, creatinine 0.9. Hemoglobin A1c 6.2. Calcium 8.6, phosphorus 4.1, magnesium 2.2. TSH 0.94. DIAGNOSES: Orthostatic hypotension, seizure disorder secondary to alcohol intake, alcohol abuse. PLAN: The patient is on Florinef 0.1 b.i.d. plus other medications as ordered. The patient had echo cardiogram on 10/13/2016, which showed normal chamber sizes, ejection fraction 60%-65%, trace mitral r egurgitation, trace tricuspid regurgitation, so echo was normal. The patient will have an IV Lexisca n stress test as outpatient. We will follow with you. Holley Lr MD cc: [id number] TT: 10/14/2016 14:00:33 Confirmation # [id number] Dictation # [id number] en
--- NOTE | 2016-10-14 21:37 | PN ---
DATE: 10/13/2016 The patient was seen this evening in room 365, bed 1. During the course of the day, I follo wed his blood pressures and orthostatics hoping that he would be able to go home today; however, he r emained profoundly orthostatic. His Florinef had been increased to twice a day. His sodium intake h ad been increased, but orthostatic continues, although less than on admission. We will continue to m onitor. PLAN: I will discontinue his IV fluids. I suspect he will be further improved in the morning and re tiffany for discharge home. Leonardo Lewis MD cc: [phone] TT: 10/14/2016 21:37:00 Confirmation # [id number] Dictation # [id number] john
--- NOTE | 2016-10-14 23:22 | DS ---
This is a 81-year-old man I have known for many years with a history of seizure disorder who takes Di lantin and gabapentin. He has been seizure free for many years. He recently developed orthostatic h ypotension. He came to the Emergency Room after a syncopal episode. There was no urinary incontinen ce, stool incontinence or seizure-like activity witnessed but the patient was unresponsive for a shor t period of time. He was evaluated in the Emergency Room. A CT scan was done. He was admitted to [facility] floor on the monitored bed. He was followed by neurology, Dr. Ordonez, during the course of his [facility] stay. Workup including CT scan, MRI, and carotid ultrasounds were unremarkable. Echocardiogr am was also done and unremarkable. He was found to be profoundly orthostatic once again and his diet was changed to relax any sodium restriction; in fact, additional sodium was given . IV fluids were given. He improved clinically, his orthostasis improved and on Saturday 10/14 he was ready for di scharge to home. FINAL DISCHARGE DIAGNOSES: 1. Orthostatic hypotension. 2. History of seizure disorder. PLAN: The patient will follow up with us in the office in 1 week and continue a high sodium diet as advised. Leonardo Lewis MD cc: 439 TT: 10/14/2016 23:22:49 katalina
== END 2016-10-14 12:13 | disposition home or self-care (01) | DRG 312 ==
LOC: ED 10:17 → ERH 11:50 → 3RNO 12:31
PROVIDERS: ADMIT Internal Medicine; ATTEND Internal Medicine
DX: I95.1 Orthostatic hypotension (principal); G40.909 Epilepsy, unspecified, not intractable, without status epilepticus; D64.9 Anemia, unspecified; E83.51 Hypocalcemia; E78.5 Hyperlipidemia, unspecified; I25.10 Atherosclerotic heart disease of native coronary artery without angina pectoris; I44.0 Atrioventricular block, first degree; I08.1 Rheumatic disorders of both mitral and tricuspid valves; I25.2 Old myocardial infarction; Z79.82 Long term (current) use of aspirin

== ENCOUNTER 2016-12-26 06:30 | Day surgery (SDC) | payer MEDICARE, BC ==
[2016-12-16 06:50] VITALS: BMI 23.1
[2016-12-26 07:18] LABS: BASO # 0.02 K/mm3 (0.0-2.0); BASO % 0.4 % (0.0-3.0); EOS # 0.6 (0.0-0.7); EOS % 11.5 % (1.5-5.0); GRAN # 2.54 (1.4-6.5); GRAN % 52.4 % (50.0-68.0); LYMPH # 1.1 (1.2-3.4); LYMPH % 21.9 % (22.0-35.0); MEAN CELL VOLUME 91.9 fL (80.0-105.0); MEAN CORPUSCULAR HEMOGLOBIN 29.6 pg (25.0-35.0); MEAN CORPUSCULAR HGB CONC 32.3 g/dl (31.0-37.0); MEAN PLATELET VOLUME 9.3 fl (7.0-11.0); MONO # 0.7 (0.1-0.6); MONO % 13.8 % (1.0-6.0); PLATELET COUNT 192 10^3/uL (120.0-450.0); RBC 4.05 10^6/uL (3.5-6.1); WHITE BLOOD COUNT 4.9 10^3/ul (4.5-11.0)
[2016-12-26 07:29] LABS: BLOOD UREA NITROGEN 21 mg/dL (7-21); CALCIUM 8.3 mg/dL (8.4-10.5); GFR AFRICAN-AMERICAN > 60; GFR NON-AFRICAN AMERICAN > 60; HDL CHOLESTEROL 54 mg/dL (29-60); INR 1.19 (0.93-1.08); PARTIAL THROMBOPLASTIN TIME 26.3 Seconds (23.7-30.8); PROTHROMBIN TIME 12.8 Seconds (9.9-11.8)
[2016-12-26 07:40] LABS: LDL CHOLESTEROL 74 mg/dL (0-129)
[2016-12-26] MEDS ORDERED: Iodixanol 320 MG/ML 200 ML BOTTLE IV ONE (08:20)
[2016-12-26] MEDS ORDERED: Midazolam 2 MG/2 ML VIAL ONE (08:20)
[2016-12-26] MEDS ORDERED: Lidocaine 2% Inj (20ml) ONE (08:56)
--- NOTE | 2016-12-26 09:36 | CARD ---
APPROVED REPORT EKG Measurement Heart [id number] [id number] <Conclusion> RSR with 1st degree AVB NSSTW changes No change
[2016-12-26] MEDS ORDERED: Bacitracin 500 Units/gm Oint Foilpak UD TOP ONE (09:53)
[2016-12-26] MEDS ORDERED: Sodium Chloride 0.9% 1,000 ML IV SCH (10:00)
[2016-12-26 10:06] VITALS: TEMP 97.5
[2016-12-26 11:16] VITALS: RESP 18
[2016-12-26] MEDS ORDERED: Bacitracin 500 Units/gm Oint Foilpak UD ONE (12:40)
[2016-12-26 12:46] VITALS: O2SAT 99
[2016-12-26 13:15] VITALS: BP 170/76; PULSE 68
--- NOTE | 2016-12-26 15:31 | CARD ---
APPROVED REPORT Procedure(s) performed: Left Heart Catheterization HISTORY The patient is a 81 year-old male with a history of : most recent EF: 65%. 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 INDICATION The indication(s) include : positive stress test. CASE TECHNIQUE The patient was brought electively to the Cardiac Catheterization Laboratory in a fasting state and was prepped and draped in a sterile manner. The left wrist was infiltrated with 2% Lidocaine subcutaneous anesthesia. A 6 Fr Glidesheath (Radial) sheath was inserted into the left radial artery without difficulty. Coronary angiography was performed using coronary diagnostic catheters. The left coronary system was accessed and visualized with a Diagnostic ,5 Fr JL 4 catheter. The right coronary system was accessed and visualized with a Diagnostic ,5 Fr JR 4 catheter. The left ventricle was accessed and visualized with a 5 Fr Pigtail 145 (Angled) catheter. Left ventricular/Aortic Valve gradient assessed on pullback. Left ventriculogram was performed in MELISSA projection. The patient tolerated the procedure well and there were no complications associated with the procedure. Vessel Analysis The patient's coronary anatomy is right dominant. The left main coronary artery is a size vessel Two separate ostium of LAD and Cx. The left anterior descending artery is a medium size vessel with intimal irregularities and without significant stenosis. The first diagonal branch is a medium size vessel with diffuse calcification noted throughout this vessel and without significant stenosis. The circumflex artery is a medium size vessel with diffuse calcification noted throughout this vessel and without significant stenosis. The first obtuse marginal branch is a small size vessel with diffuse calcification noted throughout this vessel and without significant stenosis. There is a 55-60% stenosis in the ostial segment. The second obtuse marginal branch is a medium size vessel with intimal irregularities and without significant stenosis. The third obtuse marginal branch is a large size vessel with diffuse calcification noted throughout this vessel and without significant stenosis. The right coronary artery is a large size vessel with diffuse calcification noted throughout this vessel and without significant stenosis. The right posterior descending artery is a medium size vessel with diffuse calcification noted throughout this vessel and without significant stenosis. Left Ventricle The left ventricle is borderline in size with normal contractility. The left ventricular ejection fraction is estimated to be 55%. The left ventricular end diastolic pressure is 18 mmHg. There was no gradient across the aortic valve upon pullback. Conclusion Non obstructive CAD limited to Om1 -55-60% Ostial stenosis. Preserved LV FX.EF-55%. EDP-18 mmof Hg Recommendations Cardiac Rehabilitation Referral Aggressive Medical TherapyCardiac Risk Reduction Program CC;; Vidal Cochran MD
== END 2016-12-26 16:00 | disposition home or self-care (01) ==
LOC: CATH 06:30
PROVIDERS: ATTEND Internal Medicine Cardiovascular Disease
DX: I25.10 Atherosclerotic heart disease of native coronary artery without angina pectoris (principal); G40.509 Epileptic seizures related to external causes, not intractable, without status epilepticus; F10.10 Alcohol abuse, uncomplicated; I10 Essential (primary) hypertension
CPT/HCPCS: 36415; 80048; 80061; 85025; 85610; 85730; 86850; 86900; 93005; 93458; 99152; C1769; C1887 ×2; J1644; J2250; J3010; J7040 ×2

== ENCOUNTER 2017-06-01 08:02 | Emergency (ER) | payer MEDICARE, BC ==
[2017-06-01 08:03] VITALS: BMI 23.1
[2017-06-01] MEDS ORDERED: Sodium Chloride 0.9% 1,000 ML IV STA (08:23)
--- NOTE | 2017-06-01 08:23 | ED PDOC ---
Arrival/HPI - General Chief Complaint: Dizziness/Lightheaded Time Seen by Provider: 06/01/17 08:10 Historian: Patient - History of Present Illness Narrative History of Present Illness (Text): 06/01/17 08:13 A 81 year old male, whose past medical history includes seizures and hypotension , presents to the emergency department for dizziness, which began this morning. The patient states he feels fine when he is sitting down or laying down he feels fine, but as soon as he stands up he gets lightheaded and dizzy and feels the room is "spinning." He denies any chest pain, shortness of breath, headaches , nausea, abdominal pain, or any other complaints at this time. The patient admits to having this same exact complaint in the past. Time/Duration: Prior to Arrival, 1-3 hours Symptom Course: Intermittent Activities at Onset: Light Context: Home Past Medical History - Provider Review Nursing Documentation Reviewed: Yes - Infectious Disease Hx of Infectious Diseases: None - Tetanus Immunization Tetanus Immunization: Unknown - Cardiac Hx Hypotension: Yes - Neurological Hx Seizures: Yes - Hematological/Oncological Hx Blood Transfusions: No - Musculoskeletal/Rheumatological Hx Musculoskeletal Disorders: No - Psychiatric Hx Substance Use: No - Anesthesia Hx Anesthesia Reactions: No Hx Malignant Hyperthermia: No - Suicidal Assessment Feels Threatened In Home Enviroment: No Family/Social History - Physician Review Nursing Documentation Reviewed: Yes Family/Social History: No Known Family HX Smoking Status: Never Smoked Hx Alcohol Use: No Hx Substance Use: No Hx Substance Use Treatment: No Allergies/Home Meds Allergies/Adverse Reactions: Allergies No Known Allergies Allergy (Verified 06/01/17 08:12) Home Medications: Home Meds Medication Instructions Recorded Confirmed Phenytoin Sodium Extended 200 mg PO BID 08/01/12 06/01/17 [Dilantin] Gabapentin [Neurontin] 400 mg PO TID 10/14/16 06/01/17 Review of Systems - Physician Review All systems were reviewed & negative as marked: Yes - Review of Systems Respiratory: absent: SOB Cardiovascular: absent: Chest Pain Gastrointestinal: absent: Abdominal Pain, Nausea Neurological: Dizziness. absent: Headache Physical Exam Vital Signs Reviewed: Yes Vital Signs Temp Pulse Resp BP Pulse Ox 06/01/17 08:27 97.9 F 81 19 108/71 96 Appearance: Positive for: Well-Appearing, Non-Toxic, Comfortable Pain Distress: None Mental Status: Positive for: Alert and Oriented X 3 Finger Stick Blood Glucose: 177 - Systems Exam Head: Present: Atraumatic, Normocephalic Pupils: Present: PERRL Extroacular Muscles: Present: EOMI Conjunctiva: Present: Normal Mouth: Present: Moist Mucous Membranes Neck: Present: Normal Range of Motion Respiratory/Chest: Present: Clear to Auscultation, Good Air Exchange. No: Respiratory Distress, Accessory Muscle Use Cardiovascular: Present: Regular Rate and Rhythm, Normal S1, S2. No: Murmurs Abdomen: Present: Normal Bowel Sounds. No: Tenderness, Distention, Peritoneal Signs Back: Present: Normal Inspection Upper Extremity: Present: Normal Inspection. No: Cyanosis, Edema Lower Extremity: Present: Normal Inspection. No: Edema Neurological: Present: GCS=15, CN II-XII Intact, Speech Normal, Motor Func Grossly Intact, Normal Sensory Function, Normal Cerebellar Funct, Norm Deep Tendon Reflexes, Gait Normal, Memory Normal Skin: Present: Warm, Dry, Normal Color. No: Rashes Psychiatric: Present: Alert, Oriented x 3, Normal Insight, Normal Concentration Medical Decision Making ED Course and Treatment: 06/01/17 08:24 Impression: A 81 year old male with dizziness. Differential Diagnosis included but are not limited to: Plan: -- Head CT -- EKG -- Labs -- Antivert, IV Fluids -- Urinalysis -- Reassess and disposition Progress Notes: 06/01/17 08:20 EKG: Ordered, reviewed, and independently interpreted the EKG. Rate : 70 BPM Rhythm : NSR Interpretation : 1st degree AV block Comparison : No previous EKG for comparison. 06/01/17 09:25 PROCEDURE: CT HEAD WITHOUT CONTRAST. Crane Follower : Bryon Helton MD Report Date : 06/01/2017 08:57:06 HISTORY:dizziness COMPARISON:CT 10/09/2016 FINDINGS: HEMORRHAGE:No intracranial hemorrhage. BRAIN:No mass effect or edema. No atrophy or chronic microvascular ischemic changes. VENTRICLES:Unremarkable. No hydrocephalus. CALVARIUM:Unremarkable. PARANASAL SINUSES:There is opacification of the right maxillary sinus. This was also seen on the previous exam MASTOID AIR CELLS:Unremarkable as visualized. No inflammatory changes. OTHER FINDINGS:None. IMPRESSION: No acute finding 06/01/17 09:29 Upon re-evaluation, the patient states he is feeling better and does not wish to be further evaluated in the emergency department. He states he would like to go home. 06/01/17 10:09 Upon re-evaluation the patient attempted to ambulate, but his dizziness persisted. I suggested again further evaluation, but the patient declined. signs ama 06/01/17 11:28 - Lab Interpretations Lab Results: 06/01/17 08:29 12 08:29 Lab Results 06/01/17 08:29: Sodium 141, Potassium 4.1, Chloride 108 H, Carbon Dioxide 24, Anion Gap 13, BUN 23 H, Creatinine 1.0, Est GFR ( Amer) > 60, Est GFR ( Non-Af Amer) > 60, Random Glucose 127 H, Calcium 8.4, Magnesium 1.9, Total Bilirubin 0.6, AST 22, ALT 18, Alkaline Phosphatase 114, Lactate Dehydrogenase 372, Total Creatine Kinase 36, Troponin I < 0.01, Total Protein 6.7, Albumin 3.5 , Globulin 3.3, Albumin/Globulin Ratio 1.1 06/01/17 08:29: PT 14.4 H, INR 1.28 H, APTT 30.2 06/01/17 08:29: WBC 6.2 D, RBC 3.94, Hgb 11.6 L, Hct 36.1 L, MCV 91.6, MCH 29.4 , MCHC 32.1, RDW 14.8 H, Plt Count 213, MPV 9.9, Gran % 64.3, Lymph % (Auto) 13.5 L, [place] % (Auto) 11.4 H, Eos % (Auto) 10.5 H, Baso % (Auto) 0.3, Gran # 4.00, Lymph # 0.8 L, [place] # 0.7 H, Eos # 0.7, Baso # 0.02 06/01/17 08:17: Urine Color Yellow, Urine Appearance Clear, Urine pH 6.0, Ur Specific [place] 1.020, Urine Protein Negative, Urine Glucose (UA) Negative, Urine Ketones Negative, Urine Blood Negative, Urine Nitrate Negative, Urine Bilirubin Negative, Urine Urobilinogen 0.2, Ur Leukocyte Esterase Negative - RAD Interpretation Radiology Orders: 06/01/17 08:17 HEAD W/O CONTRAST [CT] Stat - Medication Orders Current Medication Orders: Discontinued Medications Sodium Chloride (Sodium Chloride 0.9%) 1,000 mls @ 999 mls/hr IV .Q1H1M STA Stop: 06/01/17 09:23 Last Admin: 06/01/17 08:50 Dose: 999 mls/hr eMAR Start Stop Document 06/01/17 08:50 OCS (Rec: 06/01/17 08:50 OCS [id number]) Intravenous Solution Start Date 06/01/17 Start Time 08:50 End Date 06/01/17 End time 09:50 Total Infusion Time 60 Meclizine HCl (Antivert) 50 mg PO STAT STA Stop: 06/01/17 08:24 Last Admin: 06/01/17 08:51 Dose: 50 mg - Scribe Statement The provider has reviewed the documentation as recorded by the Javon Lujan Provider Scribe Attestation: All medical record entries made by the Scribe were at my direction and personally dictated by me. I have reviewed the chart and agree that the record accurately reflects my personal performance of the history, physical exam, medical decision making, and the department course for this patient. I have also personally directed, reviewed, and agree with the discharge instructions and disposition. Disposition/Present on Arrival - Present on Arrival Any Indicators Present on Arrival: No History of DVT/PE: No History of Uncontrolled Diabetes: No Urinary Catheter: No History of Decub. Ulcer: No History Surgical Site Infection Following: None - Disposition Have Diagnosis and Disposition been Completed?: Yes Diagnosis: Dizziness, Orthostatic hypotension Disposition: AGAINST MEDICAL ADVICE Disposition Time: 11:00 Condition: STABLE Discharge Instructions (ExitCare): Dizziness (ED) Additional Instructions: please follow up with specialists. you are declining observation in the hospital but you are able to return to er with worsening symptoms or concerns. Prescriptions: Meclizine [Antivert] 25 mg PO Q6 PRN #30 tab PRN Reason: Dizziness Referrals: [facility] [Outside] - Follow up with primary Jaziel Ordonez MD [Staff Provider] - Follow up with primary Leland Ordonez MD [Staff Provider] - Follow up with primary Forms: [employer] (Persian)
[2017-06-01 08:27] VITALS: BP 108/71; PULSE 81; RESP 19; TEMP 97.9; O2SAT 96
[2017-06-01 08:51] LABS: BASO # 0.02 K/mm3 (0.0-2.0); BASO % 0.3 % (0.0-3.0); EOS # 0.7 (0.0-0.7); EOS % 10.5 % (1.5-5.0); GRAN % 64.3 % (50.0-68.0); HEMATOCRIT 36.1 % (42.0-52.0); LYMPH # 0.8 (1.2-3.4); LYMPH % 13.5 % (22.0-35.0); MEAN CELL VOLUME 91.6 fl (80.0-105.0); MEAN CORPUSCULAR HEMOGLOBIN 29.4 pg (25.0-35.0); MEAN CORPUSCULAR HGB CONC 32.1 g/dl (31.0-37.0); MEAN PLATELET VOLUME 9.9 fl (7.0-11.0); MONO # 0.7 (0.1-0.6); MONO % 11.4 % (1.0-6.0); RED CELL DISTRIBUTION WIDTH 14.8 % (11.5-14.5); WHITE BLOOD COUNT 6.2 10^3/ul (4.5-11.0)
--- NOTE | 2017-06-01 08:58 | CT ---
PROCEDURE: CT HEAD WITHOUT CONTRAST. HISTORY: dizziness COMPARISON: CT 10/09/2016 TECHNIQUE: Axial computed tomography images were obtained through the head/brain without intravenous contrast. Radiation dose: Total exam DLP = 775 mGy-cm. This CT exam was performed using one or more of the following dose reduction techniques: Automated exposure control, adjustment of the mA and/or kV according to patient size, and/or use of iterative reconstruction technique. FINDINGS: HEMORRHAGE: No intracranial hemorrhage. BRAIN: No mass effect or edema. No atrophy or chronic microvascular ischemic changes. VENTRICLES: Unremarkable. No hydrocephalus. CALVARIUM: Unremarkable. PARANASAL SINUSES: There is opacification of the right maxillary sinus. This was also seen on the previous exam MASTOID AIR CELLS: Unremarkable as visualized. No inflammatory changes. OTHER FINDINGS: None. IMPRESSION: No acute finding
[2017-06-01 08:59] LABS: INR 1.28 (0.93-1.08); PARTIAL THROMBOPLASTIN TIME 30.2 Seconds (25.1-36.5)
[2017-06-01 09:01] LABS: ALB/GLOB RATIO 1.1 (1.1-1.8); ALKALINE PHOSPHATASE 114 U/L (38-126); ALT/SGPT 18 U/L (7-56); AST/SGOT 22 U/L (17-59); BILIRUBIN,TOTAL 0.6 mg/dL (0.2-1.3); BLOOD UREA NITROGEN 23 mg/dL (7-21); CALCIUM 8.4 mg/dL (8.4-10.5); CARBON DIOXIDE 24 mmol/L (21-33); CHLORIDE 108 mmol/L (98-107); GFR AFRICAN-AMERICAN > 60; GLUCOSE,RANDOM 127 mg/dL (70-110); MAGNESIUM 1.9 mg/dL (1.7-2.2); POTASSIUM 4.1 mmol/L (3.6-5.0); SODIUM 141 mmol/L (132-148); TOTAL PROTEIN 6.7 g/dL (5.8-8.3)
[2017-06-01 09:09] LABS: TROPONIN I < 0.01 ng/mL
[2017-06-01 09:19] LABS: URINE BILIRUBIN NEGATIVE (NEGATIVE); URINE BLOOD NEGATIVE (NEGATIVE); URINE GLUCOSE (UA) NEGATIVE (NEGATIVE); URINE KETONE NEGATIVE (NEGATIVE); URINE LEUKOCYTE ESTERASE NEGATIVE Leu/uL (NEGATIVE); URINE PROTEIN NEGATIVE mg/dL (<30 mg/dL); URINE UROBILINOGEN 0.2 E.U./dL (<1 E.U./dL)
[2017-06-01 09:20] LABS: URINE APPEARANCE CLEAR (CLEAR); URINE COLOR YELLOW (YELLOW)
--- NOTE | 2017-06-01 18:40 | CARD ---
APPROVED REPORT EKG Measurement Heart [id number] NM [id number] <Conclusion> Sinus rhythm with 1st degree AV block Inferior infarct, age undetermined Abnormal ECG
== END 2017-06-01 10:45 | disposition left against medical advice (07) ==
LOC: ED 08:02
DX: I95.1 Orthostatic hypotension (principal); R42 Dizziness and giddiness
CPT/HCPCS: 70450; 80053; 81003; 82550; 83615; 83735; 84484; 85025; 85610; 85730; 93005; 96360; 99285; J7040

== ENCOUNTER 2017-09-02 09:55 | Inpatient (IN) | payer BC, MEDICARE ==
[2017-09-02 09:55] VITALS: BMI 23.1
[2017-09-02 10:34] LABS: BASO # 0.03 K/mm3 (0.0-2.0); BASO % 0.4 % (0.0-3.0); EOS # 0.2 (0.0-0.7); EOS % 1.9 % (1.5-5.0); GRAN # 6.21 (1.4-6.5); GRAN % 78.4 % (50.0-68.0); HEMOGLOBIN 13.5 g/dL (14.0-18.0); LYMPH # 0.7 (1.2-3.4); LYMPH % 9.2 % (22.0-35.0); MEAN CELL VOLUME 91.7 fl (80.0-105.0); MEAN CORPUSCULAR HEMOGLOBIN 29.5 pg (25.0-35.0); MEAN CORPUSCULAR HGB CONC 32.1 g/dl (31.0-37.0); MEAN PLATELET VOLUME 9.8 fl (7.0-11.0); MONO # 0.8 (0.1-0.6); MONO % 10.1 % (1.0-6.0); RBC 4.58 10^6/uL (3.5-6.1); RED CELL DISTRIBUTION WIDTH 14.2 % (11.5-14.5); WHITE BLOOD COUNT 7.9 10^3/ul (4.5-11.0)
[2017-09-02 10:49] LABS: ALB/GLOB RATIO 1.1 (1.1-1.8); ALBUMIN 4.3 g/dL (3.0-4.8); ALT/SGPT 31 U/L (7-56); AST/SGOT 28 U/L (17-59); BLOOD UREA NITROGEN 17 mg/dL (7-21); CALCIUM 9.5 mg/dL (8.4-10.5); GFR AFRICAN-AMERICAN > 60; GFR NON-AFRICAN AMERICAN > 60
--- NOTE | 2017-09-02 10:59 | CT ---
PROCEDURE: CT Lumbar Spine without contrast HISTORY: Right sided back pain COMPARISON: None. TECHNIQUE: Axial computed tomography images were obtained of the lumbar spine without the use of intravenous contrast. Coronal and sagittal reformatted images were created and reviewed. Radiation dose: Total exam DLP = 503.86 mGy-cm. This CT exam was performed using one or more of the following dose reduction techniques: Automated exposure control, adjustment of the mA and/or kV according to patient size, and/or use of iterative reconstruction technique. FINDINGS: VERTEBRAE: Diffuse osteopenia. Multiple hemangiomas. No suspicious pathologic abnormalities vertebral bodies. . No fracture. Normal alignment. DISCS/SPINAL CANAL/NEURAL FORAMINA: L1-2: Unremarkable. L2-3: Unremarkable. L3-4: Mild canal stenosis L3-4. No focal disc herniation L4-5: Moderate canal stenosis primarily related to annular bulging and hypertrophy of the ligamentum flavum. L5-S1: Mild bulging annulus without focal disc herniation. PARASPINAL SOFT TISSUES: Unremarkable. OTHER FINDINGS: None. IMPRESSION: No acute fracture or other acute pathologic process. Preservation of intervertebral disc spaces without focal herniated disc. Lumbar canal stenosis L3-4 and L4-5.
[2017-09-02 11:00] LABS: TROPONIN I < 0.01 ng/mL
[2017-09-02 11:10] LABS: INR 1.17 (0.93-1.08); PROTHROMBIN TIME 13.5 SECONDS (9.4-12.5)
[2017-09-02 11:11] LABS: PARTIAL THROMBOPLASTIN TIME 32.3 Seconds (25.1-36.5)
--- NOTE | 2017-09-02 11:34 | ED PDOC ---
Arrival/HPI <Willie Herndon - Last Filed: 09/02/17 17:05> - General Historian: Patient <Yolanda Roberts A - Last Filed: 09/02/17 19:38> - General Chief Complaint: Back Pain Time Seen by Provider: 09/02/17 10:04 - History of Present Illness Narrative History of Present Illness (Text): 09/02/17 11:25 82yo male with PMHx of seizure who present with 2days history of right sided back pain. States pain is sharp and usually when he tries to stand up, after sitting. States he did not take any medication. He notes that he have had back pain in the past, but not this severe. He denies trauma, abdominal pain, nausea , vomiting, upper ripping/tearing back pain, saddle anesthesia, focal weakness, fever, chills, urinary symptoms. (Yolanda Roberts A) Past Medical History - Provider Review Nursing Documentation Reviewed: Yes - Infectious Disease Hx of Infectious Diseases: None - Tetanus Immunization Tetanus Immunization: Unknown - Cardiac Hx Hypotension: Yes - Neurological Hx Seizures: Yes - Hematological/Oncological Hx Blood Transfusions: No - Musculoskeletal/Rheumatological Hx Musculoskeletal Disorders: No - Psychiatric Hx Emotional Abuse: No Hx Physical Abuse: No Hx Substance Use: No - Surgical History Other/Comment: Nasal Sx - Anesthesia Hx Anesthesia Reactions: No Hx Malignant Hyperthermia: No - Suicidal Assessment Feels Threatened In Home Enviroment: No <Yolanda Roberts - Last Filed: 09/02/17 19:38> Family/Social History - Physician Review Nursing Documentation Reviewed: Yes Family/Social History: Unknown Family HX Smoking Status: Never Smoked Hx Alcohol Use: No Hx Substance Use: No Hx Substance Use Treatment: No <Yolanda Roberts A - Last Filed: 09/02/17 19:38> Allergies/Home Meds <Willie Herndon - Last Filed: 09/02/17 17:05> <Yolanda Roberts A - Last Filed: 09/02/17 19:38> Allergies/Adverse Reactions: Allergies No Known Allergies Allergy (Verified 09/02/17 10:08) Home Medications: Home Meds Medication Instructions Recorded Confirmed Phenytoin Sodium Extended 400 mg PO QOTHERDAY 08/01/12 09/02/17 [Dilantin] Gabapentin [Neurontin] 400 mg PO TID 10/14/16 09/02/17 Aspirin [Ecotrin] 81 mg PO DAILY 09/02/17 09/02/17 Fludrocortisone [Florinef Acetate] 0.1 mg PO BID 09/02/17 09/02/17 Phenytoin Sodium Extended 500 mg PO QOTHERDAY 09/02/17 09/02/17 [Phenytoin Sodium Extended] Review of Systems - Physician Review All systems were reviewed & negative as marked: Yes - Review of Systems Constitutional: Normal Eyes: Normal ENT: Normal Respiratory: Normal Cardiovascular: Normal Gastrointestinal: Normal Genitourinary Male: Normal Musculoskeletal: Back Pain Skin: Normal Neurological: Normal Endocrine: Normal Hemo/Lymphatic: Normal Psychiatric: Normal <Diru,Happiness A - Last Filed: 09/02/17 19:38> Physical Exam Vital Signs Reviewed: Yes Temperature: Afebrile Blood Pressure: Normal Pulse: Tachycardic Respiratory Rate: Normal Appearance: Positive for: Well-Appearing, Non-Toxic, Comfortable Pain Distress: None Mental Status: Positive for: Alert and Oriented X 3 - Systems Exam Head: Present: Atraumatic, Normocephalic Pupils: Present: PERRL Extroacular Muscles: Present: EOMI Conjunctiva: Present: Normal Mouth: Present: Moist Mucous Membranes Neck: Present: Normal Range of Motion Respiratory/Chest: Present: Clear to Auscultation, Good Air Exchange. No: Respiratory Distress, Accessory Muscle Use Cardiovascular: Present: Regular Rate and Rhythm, Normal S1, S2. No: Murmurs Abdomen: Present: Normal Bowel Sounds. No: Tenderness, Distention, Peritoneal Signs Back: Present: Paraspinal Tenderness (Right paraspinous tenderness). No: Midline Tenderness, Pain with Leg Raise Upper Extremity: Present: Normal Inspection. No: Cyanosis, Edema Lower Extremity: Present: Normal Inspection. No: Edema Neurological: Present: GCS=15, CN II-XII Intact, Speech Normal Skin: Present: Warm, Dry, Normal Color. No: Rashes Psychiatric: Present: Alert, Oriented x 3, Normal Insight, Normal Concentration <Diru,Happiness A - Last Filed: 09/02/17 19:38> Vital Signs Temp Pulse Resp BP Pulse Ox 09/02/17 16:00 89 18 141/88 97 09/02/17 14:28 97.9 F 09/02/17 10:05 98.2 F 103 H 18 106/73 100 Medical Decision Making - RAD Interpretation Hot Baller: Radiologist - EKG Interpretation Interpreted by ED Physician: Yes Type: 12 lead EKG <Willie Herndon - Last Filed: 09/02/17 17:05> <Yolanda Roberts - Last Filed: 09/02/17 19:38> ED Course and Treatment: 09/02/17 17:07 Patient seen and evaluated with PA. On exam, no pulsatile masses. CV stable. Unable to ambulate after pain medication in ED. Neurovascularly inatct. Reports loss of appetite, on exam, mild diffuse abdominal pain noted but no peritoneal signs. Will admit for observation. (Willie Herndon) PT was seen for stated history. On re evaluation pt continue to complain of pain. he was unable to ambulate in ED. PT also lives alone. He will be will be admitted for further evaluation and OBS, Dr. Herndon DC with Dr. Lewis and pt was admitted to his service. (Yolanda Roberts) - Lab Interpretations Lab Results: 09/02/17 10:20 09/02/17 10:20 Lab Results 09/02/17 10:20: Sodium 137, Potassium 4.0, Chloride 101, Carbon Dioxide 26, Anion Gap 15, BUN 17, Creatinine 1.0, Est GFR ( Amer) > 60, Est GFR (Non- Af Amer) > 60, Random Glucose 152 H, Calcium 9.5, Total Bilirubin 0.7, AST 28, ALT 31, Alkaline Phosphatase 222 H D, Lactate Dehydrogenase 530, Total Creatine Kinase 50, Troponin I < 0.01, Total Protein 8.3, Albumin 4.3, Globulin 4.0, Albumin/Globulin Ratio 1.1 09/02/17 10:20: PT 13.5 H, INR 1.17 H, APTT 32.3 09/02/17 10:20: WBC 7.9 D, RBC 4.58, Hgb 13.5 L, Hct 42.0, MCV 91.7, MCH 29.5, MCHC 32.1, RDW 14.2, Plt Count 245, MPV 9.8, Gran % 78.4 H, Lymph % (Auto) 9.2 L , [place] % (Auto) 10.1 H, Eos % (Auto) 1.9, Baso % (Auto) 0.4, Gran # 6.21, Lymph # (Auto) 0.7 L, [place] # (Auto) 0.8 H, Eos # (Auto) 0.2, Baso # (Auto) 0.03 - RAD Interpretation Radiology Orders: 09/02/17 10:15 LUMBAR SPINE W/O CONTRAST [CT] Stat 09/02/17 14:21 ABD & PELVIS W/O PO OR IV CONT [CT] Stat - EKG Interpretation EKG Interpretation (Text): 09/02/17 17:07 EKG normal sinus rhythm rate of 90 with first degree av block, pvc (Willie Herndon) - Medication Orders Current Medication Orders: Aspirin (Ecotrin) 81 mg PO DAILY MARLENE Fludrocortisone Acetate (Florinef) 0.1 mg PO DAILY MARLENE Gabapentin (Neurontin) 400 mg PO TID MARLENE PRN Reason: Protocol Meclizine HCl (Antivert) 25 mg PO Q6H PRN PRN Reason: Dizziness Phenytoin (Dilantin) 200 mg PO BID MARLENE Discontinued Medications Oxycodone/Acetaminophen (Percocet 5/325 Mg Tab) 1 tab PO STAT STA Stop: 09/02/17 14:48 Last Admin: 09/02/17 15:22 Dose: 1 tab MAR Pain Assessment Document 09/02/17 15:22 EQ (Rec: 09/02/17 15:22 EQ [id number]) Pain Reassessment Is this a pain reassessment? No Sleep Is patient sleeping during reassessment? No Presence of Pain Presence of Pain Yes Pneumococcal Polyvalent Vaccine (Pneumovax 23 Vaccine) 0.5 ml IM .ONCE ONE Stop: 09/02/17 17:27 Disposition/Present on Arrival <Willie Herndon - Last Filed: 09/02/17 17:05> - Present on Arrival Any Indicators Present on Arrival: No History of DVT/PE: No History of Uncontrolled Diabetes: No Urinary Catheter: No History of Decub. Ulcer: No History Surgical Site Infection Following: None - Disposition Have Diagnosis and Disposition been Completed?: Yes Disposition Time: 14:10 Patient Plan: Admission <Yolanda Roberts - Last Filed: 09/02/17 19:38> - Disposition Diagnosis: Intractable back pain Disposition: HOSPITALIZED Patient Problems: Current Active Problems Problem Status Onset Intractable back pain Acute Condition: FAIR
[2017-09-02] MEDS ORDERED: Oxycodone/Acetaminophen 5/325 mg Tab PO STA (14:47)
--- NOTE | 2017-09-02 15:49 | CT ---
PROCEDURE: CT Abdomen and Pelvis without intravenous contrast HISTORY: back pain COMPARISON: None. TECHNIQUE: Unenhanced study. Neither oral nor intravenous contrast administered. Radiation dose: Total exam DLP = 466.24 mGy-cm. This CT exam was performed using one or more of the following dose reduction techniques: Automated exposure control, adjustment of the mA and/or kV according to patient size, and/or use of iterative reconstruction technique. FINDINGS: LOWER THORAX: Unremarkable. LIVER: Unremarkable. No gross lesion or ductal dilatation. GALLBLADDER AND BILE DUCTS: Cholelithiasis without CT evidence of acute cholecystitis. PANCREAS: Unremarkable. No gross lesion or ductal dilatation. SPLEEN: Unremarkable. ADRENALS: Unremarkable. No mass. KIDNEYS AND URETERS: Unremarkable. No hydronephrosis. No solid mass. Bilateral parapelvic cysts an incidental finding VASCULATURE: Unremarkable. No aortic aneurysm. BOWEL: Constipation without fecal impaction or obstruction. Diverticulosis without an acute inflammatory component or other associated pathologic process. . No gross mural thickening. APPENDIX: Unremarkable. Normal appendix. PERITONEUM: Unremarkable. No free fluid. No free air. LYMPH NODES: Unremarkable. No enlarged lymph nodes. BLADDER: Unremarkable. REPRODUCTIVE: Unremarkable. BONES: No acute fracture. OTHER FINDINGS: None. IMPRESSION: No acute findings related to/accounting for the clinical presentation. Additional benign and/or incidental findings described above.
[2017-09-02 16:18] LABS: PH,URINE 6.5 (4.7-8.0); URINE BILIRUBIN NEGATIVE (NEGATIVE); URINE BLOOD NEGATIVE (NEGATIVE); URINE GLUCOSE (UA) NEGATIVE (NEGATIVE); URINE LEUKOCYTE ESTERASE NEGATIVE Leu/uL (NEGATIVE); URINE PROTEIN TRACE mg/dL (<30 mg/dL); URINE UROBILINOGEN 0.2 E.U./dL (<1 E.U./dL)
[2017-09-02 16:19] LABS: URINE APPEARANCE CLEAR (CLEAR); URINE COLOR YELLOW (YELLOW)
[2017-09-02 16:32] LABS: URINE RBC 0 - 2 /hpf (0-2)
[2017-09-02 16:33] LABS: URINE EPITHELIAL CELLS 0 - 2 /hpf (0-5); URINE WBC 0 - 2 /hpf (0-6)
[2017-09-02] MEDS ORDERED: Pneumococcal 23-Valent Vaccine IM ONE (17:26)
[2017-09-02] MEDS: Phenytoin 100 mg/4 ml Oral Susp UD PO SCH (21:03)
[2017-09-02] MEDS: HYDROmorphone 1 mg/ml ISec IVP PRN (21:51)
[2017-09-03 07:32] LABS: BASO # 0.02 K/mm3 (0.0-2.0); BASO % 0.3 % (0.0-3.0); EOS # 0.3 (0.0-0.7); EOS % 5.3 % (1.5-5.0); GRAN # 4.19 (1.4-6.5); GRAN % 65.8 % (50.0-68.0); HEMOGLOBIN 11.8 g/dL (14.0-18.0); LYMPH # 0.9 (1.2-3.4); LYMPH % 13.5 % (22.0-35.0); MEAN CELL VOLUME 90.5 fl (80.0-105.0); MEAN CORPUSCULAR HEMOGLOBIN 28.8 pg (25.0-35.0); MEAN CORPUSCULAR HGB CONC 31.8 g/dl (31.0-37.0); MEAN PLATELET VOLUME 9.6 fl (7.0-11.0); MONO % 15.1 % (1.0-6.0); RBC 4.1 10^6/uL (3.5-6.1); RED CELL DISTRIBUTION WIDTH 14.1 % (11.5-14.5); WHITE BLOOD COUNT 6.4 10^3/ul (4.5-11.0)
[2017-09-03 07:48] LABS: BLOOD UREA NITROGEN 19 mg/dL (7-21); GFR AFRICAN-AMERICAN > 60; GFR NON-AFRICAN AMERICAN > 60
[2017-09-03] MEDS: HYDROmorphone 1 mg/ml ISec IVP PRN ×2 (08:34→17:20)
[2017-09-03] MEDS ORDERED: Magnesium Hydroxide Susp 30 ml UD PO PRN (09:15)
[2017-09-03] MEDS: Phenytoin 100 mg/4 ml Oral Susp UD PO SCH ×2 (09:20→17:20)
[2017-09-03] MEDS ORDERED: MethylPREDNISolone Depo 40 mg/ml Inj IM ONE (10:24)
[2017-09-03] MEDS ORDERED: Bupivacaine 0.5% Inj(30mL) IJ ONE (10:24)
--- NOTE | 2017-09-03 15:49 | MRI ---
PROCEDURE: MR LUMBAR SPINE WITHOUT CONTRAST HISTORY: pain COMPARISON: None available. TECHNIQUE: Multiecho multiplanar sequences were performed through the lumbar spine without the use of intravenous contrast. FINDINGS: Normal lumbar lordosis. Vertebral body heights are preserved. Marrow signal unremarkable. Conus medullaris unremarkable at the level of T12-L1. Paraspinal soft tissues are unremarkable. T12-L1: No disc herniation, spinal canal stenosis or neural foraminal narrowing. L1-2: No disc herniation, spinal canal stenosis or neural foraminal narrowing. L2-3: No disc herniation, spinal canal stenosis or neural foraminal narrowing. L3-4: No disc herniation, spinal canal stenosis or neural foraminal narrowing. L4-5: Diffuse disc bulge with facet and ligament hypertrophy contribute to severe central canal stenosis and bilateral foraminal stenosis. L5-S1: Central disc herniation with encroachment upon both descending S1 nerve roots and bilateral foraminal stenosis. OTHER FINDINGS: None. IMPRESSION: L4-5 Diffuse disc bulge with facet and ligament hypertrophy contribute to severe central canal stenosis and bilateral foraminal stenosis. L5-S1 Central disc herniation with encroachment upon both descending S1 nerve roots and bilateral foraminal stenosis.
--- NOTE | 2017-09-03 16:47 | CT ---
PROCEDURE: CT Chest without contrast HISTORY: Back at and infra scapular Pain. No history of recent/ related trauma provided COMPARISON: None. TECHNIQUE: Contiguous axial images were obtained through the chest without intravenous contrast enhancement. Sagittal and coronal reconstructions were performed. Radiation dose (DLP): 240.02 mGy-cm. This CT exam was performed using one or more of the following dose reduction techniques: Automated exposure control, adjustment of the mA and/or kV according to patient size, and/or use of iterative reconstruction technique. FINDINGS: LUNGS: Mild interstitial lung disease. No discrete pulmonary nodules, masses or infiltrates. MEDIASTINUM: Unremarkable thoracic aorta. No aneurysm. Normal sized heart. Main pulmonary artery unremarkable. No vascular congestion. No lymphadenopathy. PLEURA: No pleural fluid. No pneumothorax. BONES: Loss of height contiguous mid thoracic vertebral bodies T8 and T9 etiology uncertain. No gross destruction identified. Evidence of diffuse osteopenia. UPPER ABDOMEN: Grossly unremarkable. OTHER FINDINGS: None. IMPRESSION: No active pulmonary disease. Age indeterminate compression deformities T8-T9.
--- NOTE | 2017-09-03 17:15 | MRI ---
PROCEDURE: MR THORACIC SPINE WITHOUT CONTRAST HISTORY: pain COMPARISON: None available. TECHNIQUE: Multiecho multiplanar sequences were performed through the thoracic spine without the use of intravenous contrast. FINDINGS: ALIGNMENT: Normal thoracic spinal alignment. Normal thoracic kyphosis. VERTEBRA: Acute compression fracture with minimal loss of height at T8 with severe marrow edema. Old mild compression fracture of T7 MARROW: Marrow signal unremarkable. PARASPINAL SOFT TISSUES: Unremarkable. CORD: Unremarkable thoracic cord. No volume loss, signal abnormality or syrinx. DISCS: Multilevel disc dehydration and disc bulging without significant stenosis. OTHER FINDINGS: None. IMPRESSION: Acute compression fracture with minimal loss of height at T8 with severe marrow edema. Old mild compression fracture of T7
--- NOTE | 2017-09-03 21:58 | CON ---
DATE: 09/03/2017 ORTHOPEDIC CONSULTATION HISTORY OF PRESENT ILLNESS: This is an 82-year-old male. I was asked to see the patient today for low back pain which has been present for about 4 days, but he says no injury. CAT scan done in the emergency room does show mild spinal stenosis, could ambulate, feels better with flexed lumbar spine with his knees are flexed, hips are flexed and this could be because he does have spinal stenosis. Spine does feel better when it is flexed. He does also have point tenderness throughout sacroiliac joint. Reflexes are fine. No spasticity. Good bowel and bladder function. So, I took the opportunity to inject his symptomatic trigger point over the left sacroiliac joint with Depo-Medrol and Marcaine. Hopefully, this helps his low back pain which is probably related to some osteoarthritis of sacroiliac joint that could be made worse by sprain and I will see how he does with this injection. Start physical therapy for spine flexion exercises and ambulate with a walker. 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 Bryon Howell DO
--- NOTE | 2017-09-03 23:12 | CARD ---
APPROVED REPORT EKG Measurement Heart [id number] MD [id number] <Conclusion> Sinus rhythm with 1st degree AV block with occasional premature ventricular complexes Otherwise normal ECG
[2017-09-04] MEDS: HYDROmorphone 1 mg/ml ISec IVP PRN ×2 (00:12→19:58)
[2017-09-04 07:50] LABS: BASO # 0.02 K/mm3 (0.0-2.0); BASO % 0.3 % (0.0-3.0); EOS # 0.3 (0.0-0.7); EOS % 4.1 % (1.5-5.0); GRAN # 4.11 (1.4-6.5); GRAN % 66.7 % (50.0-68.0); HEMOGLOBIN 12.2 g/dL (14.0-18.0); LYMPH # 0.9 (1.2-3.4); LYMPH % 14.6 % (22.0-35.0); MEAN CELL VOLUME 90.1 fl (80.0-105.0); MEAN CORPUSCULAR HEMOGLOBIN 29.4 pg (25.0-35.0); MEAN CORPUSCULAR HGB CONC 32.6 g/dl (31.0-37.0); MEAN PLATELET VOLUME 9.8 fl (7.0-11.0); MONO # 0.9 (0.1-0.6); MONO % 14.3 % (1.0-6.0); RBC 4.15 10^6/uL (3.5-6.1); RED CELL DISTRIBUTION WIDTH 13.8 % (11.5-14.5); WHITE BLOOD COUNT 6.2 10^3/ul (4.5-11.0)
[2017-09-04 08:02] LABS: AMYLASE 46 U/L (35-125); BLOOD UREA NITROGEN 26 mg/dL (7-21); GFR AFRICAN-AMERICAN > 60; GFR NON-AFRICAN AMERICAN > 60; LIPASE 44 U/L (23-300)
[2017-09-04 08:19] LABS: FREE T4 1.43 ng/dL (0.78-2.19)
[2017-09-04] MEDS: Phenytoin 100 mg/4 ml Oral Susp UD PO SCH ×2 (09:24→17:51)
--- NOTE | 2017-09-04 09:56 | CP.PCM.CON ---
History of Present Illness - History of Present Illness History of Present Illness: Pain Management We were asked to evaluate this patient by Dr. Howell. Pt is an 82 yo with a PMH of seizures who presents with 4 days of acute severe low back pain. Pt was seen by Dr. Howell who performed a trigger point injection over the right SI joint yesterday without relief. Pt takes neurontin 400mg tid for seizures and flexeril 5mg tid and motrin 400mg q12 for pain without relief. MRI shows L4-L% severe central canal stenosis and T8 acute compression fracture with severe marrow edema and an old T7 compression fx. Pt denies bladder and bowel incontinence. Will discuss with the rest of the pain management team along with Dr. Lewis and Dr. Howell.to decide management. Thank you for allowing us to see Mr. Duggan. Artemio Garcia Past Patient History - Infectious Disease Hx of Infectious Diseases: None - Tetanus Immunizations Tetanus Immunization: Unknown - Past Social History Smoking Status: Never Smoked - CARDIAC Hx Hypotension: Yes - NEUROLOGICAL Hx Seizures: Yes - HEENT Hx HEENT Problems: Yes (eyeglasses) - HEMATOLOGICAL/ONCOLOGICAL Hx Blood Transfusions: No - INTEGUMENTARY Other/Comment: scratch saldana and small scabs to both hands from scratching, thick toenails and dry flakey skin both feet - MUSCULOSKELETAL/RHEUMATOLOGICAL Hx Musculoskeletal Disorders: No - PSYCHIATRIC Hx Emotional Abuse: No Hx Physical Abuse: No Hx Substance Use: No - SURGICAL HISTORY Other/Comment: Nasal Sx - ANESTHESIA Hx Anesthesia Reactions: No Hx Malignant Hyperthermia: No Meds Allergies/Adverse Reactions: Allergies Allergy/AdvReac Type Severity Reaction Status Date / Time No Known Allergies Allergy Verified 09/02/17 10:08 - Medications Medications: Current Medications Aspirin (Ecotrin) 81 mg PO DAILY [facility] Last Admin: 09/04/17 09:25 Dose: 81 mg Cyclobenzaprine HCl (Flexeril) 5 mg PO Q8H PRN PRN Reason: Muscle spasm Last Admin: 09/04/17 09:25 Dose: 5 mg Fludrocortisone Acetate (Florinef) 0.1 mg PO DAILY [facility] Last Admin: 09/04/17 09:25 Dose: 0.1 mg Gabapentin (Neurontin) 400 mg PO TID [facility] PRN Reason: Protocol Last Admin: 03/12/18 09:25 Dose: 400 mg Hydromorphone HCl (Dilaudid) 1 mg IVP Q6H PRN PRN Reason: Pain, severe (8-10) Last Admin: 09/04/17 00:12 Dose: 1 mg Ibuprofen (Motrin Tab) 400 mg PO Q12 [facility] Last Admin: 09/04/17 09:28 Dose: 400 mg Magnesium Hydroxide (Milk Of Magnesia) 30 ml PO DAILY PRN PRN Reason: Constipation Meclizine HCl (Antivert) 25 mg PO Q6H PRN PRN Reason: Dizziness Ondansetron HCl (Zofran Inj) 4 mg IVP Q8H PRN PRN Reason: Nausea/Vomiting Phenytoin (Dilantin) 200 mg PO BID [facility] Last Admin: 09/04/17 09:24 Dose: 200 mg Results - Vital Signs Recent Vital Signs: Last Vital Signs Temp 98 F 09/04/17 07:48 Pulse 73 09/04/17 07:48 Resp 18 09/04/17 07:48 BP 122/72 09/04/17 07:48 Pulse Ox 98 09/04/17 07:48 - Labs Result Diagrams: 09/04/17 07:20 09/04/17 07:20
--- NOTE | 2017-09-04 10:08 | CP.PCM.CON ---
History of Present Illness - History of Present Illness History of Present Illness: Pain Management Addendum: Discussed with Dr. Eusebio Camargo pain management who recommends neurosurgical consult given the acute compression fracture. Pt without radiculopathy and neuro deficits. Will discuss with Dr. Lewis and Dr. Howell. Thank you Artemio Garcia Past Patient History - Infectious Disease Hx of Infectious Diseases: None - Tetanus Immunizations Tetanus Immunization: Unknown - Past Social History Smoking Status: Never Smoked - CARDIAC Hx Hypotension: Yes - NEUROLOGICAL Hx Seizures: Yes - HEENT Hx HEENT Problems: Yes (eyeglasses) - HEMATOLOGICAL/ONCOLOGICAL Hx Blood Transfusions: No - INTEGUMENTARY Other/Comment: scratch saldana and small scabs to both hands from scratching, thick toenails and dry flakey skin both feet - MUSCULOSKELETAL/RHEUMATOLOGICAL Hx Musculoskeletal Disorders: No - PSYCHIATRIC Hx Emotional Abuse: No Hx Physical Abuse: No Hx Substance Use: No - SURGICAL HISTORY Other/Comment: Nasal Sx - ANESTHESIA Hx Anesthesia Reactions: No Hx Malignant Hyperthermia: No Meds Allergies/Adverse Reactions: Allergies Allergy/AdvReac Type Severity Reaction Status Date / Time No Known Allergies Allergy Verified 09/02/17 10:08 - Medications Medications: Current Medications Aspirin (Ecotrin) 81 mg PO DAILY [facility] Last Admin: 09/04/17 09:25 Dose: 81 mg Cyclobenzaprine HCl (Flexeril) 5 mg PO Q8H PRN PRN Reason: Muscle spasm Last Admin: 09/04/17 09:25 Dose: 5 mg Fludrocortisone Acetate (Florinef) 0.1 mg PO DAILY [facility] Last Admin: 09/04/17 09:25 Dose: 0.1 mg Gabapentin (Neurontin) 400 mg PO TID [facility] PRN Reason: Protocol Last Admin: 09/04/17 09:25 Dose: 400 mg Hydromorphone HCl (Dilaudid) 1 mg IVP Q6H PRN PRN Reason: Pain, severe (8-10) Last Admin: 09/04/17 00:12 Dose: 1 mg Ibuprofen (Motrin Tab) 400 mg PO Q12 [facility] Last Admin: 09/04/17 09:28 Dose: 400 mg Magnesium Hydroxide (Milk Of Magnesia) 30 ml PO DAILY PRN PRN Reason: Constipation Meclizine HCl (Antivert) 25 mg PO Q6H PRN PRN Reason: Dizziness Ondansetron HCl (Zofran Inj) 4 mg IVP Q8H PRN PRN Reason: Nausea/Vomiting Phenytoin (Dilantin) 200 mg PO BID [facility] Last Admin: 09/04/17 09:24 Dose: 200 mg Results - Vital Signs Recent Vital Signs: Last Vital Signs Temp 98 F 09/04/17 07:48 Pulse 73 09/04/17 07:48 Resp 18 09/04/17 07:48 BP 122/72 09/04/17 07:48 Pulse Ox 98 09/04/17 07:48 - Labs Result Diagrams: 09/04/17 07:20 09/04/17 07:20
--- NOTE | 2017-09-04 14:06 | PN ---
DATE: 09/03/2017 SUBJECTIVE: The patient was seen this Monday morning in room 577, bed 2. He is resting in bed comfortably, in no acute distress, but with the slightest movement, there is sudden pain in the mid back. There is pain on palpation in the infrascapular area. He denies pain with deep respirations. There is no chest tightness, heaviness or pressure. There is no abdominal pain. The pain responded to IV Dilaudid. Percocet was not effective. PLAN: We will get a CT of the chest to rule out intrathoracic abnormalities. We will ask for orthopedic consultation by Dr. Bryon Howell. I have ordered an MRI of the thoracic and lumbar spine to rule out pathology of those areas. MRIs were reviewed. Thoracic spine MRI reveals an acute compression fracture of T8 with severe marrow edema and an old mild compression fracture of T7. This matches the clinical picture and the source of the pain. We will continue to treat with analgesics and antiinflammatories. Only if the pain persists and it is rather severe, then would we consider kyphoplasty at this point. Leonardo Lewis MD [facility]
--- NOTE | 2017-09-04 16:14 | PN ---
DATE: 09/04/2017 UPDATED REPORT Patient underwent a left sacroiliac joint injection with Depo-Medrol and Marcaine yesterday, had no appreciable benefit and the MRI came back of his back showing central disk herniation at L5 and S1 with encroachment of the descending S1 nerve root bilaterally and severe cord and canal stenosis; bilateral foraminal stenosis of L4 and L5; so, I called for a pain management consult from the anesthesiologist. They can possibly get an epidural injection for pain relief with steroids from the trained anesthesiologists that do epidurals for pain relief. In the meantime, I will still get him out of bed despite the mild compression fracture of the dorsal lumbar spine. Bryon Howell DO MTDRamiro
--- NOTE | 2017-09-04 19:45 | HP ---
CHIEF COMPLAINT: Mid back pain. HISTORY OF PRESENT ILLNESS: This is an 82-year-old man I have known for many, many years, who is not a complainer and not one to come to the emergency room. He presented to the ER this Monday late morning complaining of mid upper back pain. It was relatively sudden in onset. Does not radiate to the chest. Does not radiate around to the side. It is in the mid back infrascapular area. In the emergency room, he was treated with analgesics with some relief. CT scan of the abdomen and pelvis and a chest x-ray were done as well as a lumbar spine x-ray, not revealing the etiology of the pain. PAST MEDICAL HISTORY: Negative for hypertension, diabetes, cholesterol, tuberculosis, asthma, gout, COPD, TIA, CVA, NE, coronary artery disease, or cancers of any type. Past history is positive for seizure disorder, onset in 1984. His last seizure was in 1997. He also has a right-sided carotid stenosis with 60% to 80% occlusion noted on ultrasound in 2009, 2011, 2013, 2015. He was hospitalized with orthostatic hypotension in 10/2016. PAST SURGICAL HISTORY: Includes nasal surgery in 1984, cervical radiculopathy for which he received epidurals in 2012 and cardiac catheterization showing minimal coronary artery disease. No stents were placed and that was done in 11/2016. ALLERGIES: HE REPORTS HE IS ALLERGIC TO FLU VACCINE THAT HE HAD A SEIZURE AFTER RECEIVING ONE. SOCIAL HISTORY: Tobacco, he experimented how to use, but never smoked. Alcohol, he quit in 1984. Coffee, 1-2 cups per day. He has not had a colonoscopy, but he had a sigmoidoscopy in 2001 and 2007 and does yearly FOBT since then. He had a stress test in 2006 and 2016. He does not get the flu shot because of his allergy. He had a Pneumovax vaccine in 1994 and has declined ever since then. He received his last tetanus TDAP at Hospital in 2009 when he was hospitalized after a fall. FAMILY HISTORY: His mother at 91 years old in 06/1991. His father at age 63. He is the youngest of 3 sibs. His brother at 86 and his sister at 70 years old in 2012 of cancer. He is single. Never . No children. 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 He worked for [employer] from 1959 to 1985. His pain management doctor in 2012 for the epidural was Dr. Francois. CURRENT MEDICATIONS: Include Dilantin 500 mg alternating with 400 mg daily, Neurontin 400 mg t.i.d., Florinef 0.1 mg b.i.d., aspirin 81 mg daily, and fluconazole nasal spray on an as needed basis. REVIEW OF SYSTEMS: Otherwise negative. PHYSICAL EXAMINATION: GENERAL: The patient was seen this Monday afternoon in the emergency room. He is in bed, awake, alert, clear, appropriate, in moderate distress when he moves with a sudden gripping sharp pain in the mid back. HEENT: Head and neck were unremarkable. Conjunctivae pink. Mucous membranes moist. NECK: Supple without masses. Thyroid not palpable. LUNGS: Show good aeration, right and left. HEART: Regular, nontachycardic. ABDOMEN: Soft, nontender. EXTREMITIES: Showed no edema. LABORATORY DATA: Labs and EKG were unremarkable. CT of the lumbar spine and CT of the abdomen and pelvis showed typical changes related to age, but no acute etiology of the symptoms. IMPRESSION: 1. Back pain. 2. Seizure disorder. 3. Question of abdominal symptoms and perhaps some relatively mild weight loss. PLAN: Admit, analgesics, further workup with radiological diagnostics for the etiology of the pain. Leonardo Lewis MD
[2017-09-05 00:24] VITALS: RESP 20
--- NOTE | 2017-09-05 01:42 | PN ---
DATE: SUBJECTIVE: This patient is an 82-year-old male, who was admitted with a rather sudden onset of back pain, found to have an acute compression fracture of T8 with an old compression fracture of T7 and diffuse disc bulging in the lumbar spine. He is known to have a past medical history positive for seizure disorder, last seizure was in 1997. He has right-sided carotid stenosis, history of orthostatic hypotension. When seen today, he was lying in bed. He says the pain has somewhat subsided. He admits that physical therapy had been to see him earlier today and he was able to ambulate 70 feet, although the pain at that time was rated as an 8/10. PHYSICAL EXAMINATION: HEART: Regular. LUNGS: Clear anteriorly. ABDOMEN: Soft and nontender. VITAL SIGNS: Stable. Blood pressure this morning was 99/59, heart rate is 75. LABORATORY DATA: White blood cell count is 6.2, hemoglobin is 12.2, hematocrit 37.4. Sodium is 135, potassium 4.9. Blood urea nitrogen 26, creatinine 1.0. ASSESSMENT AND PLAN: The suggestion from the physical therapy note is that the patient go for transitional care unit for physical therapy and pain control. He was also evaluated by Dr. Howell, who was suggesting physical therapy. We will continue to follow the patient closely. Consider various types of pain management for his acute compression fracture. Bryon Lewis MD MTDD
[2017-09-05] MEDS: HYDROmorphone 1 mg/ml ISec IVP PRN (08:16)
[2017-09-05] MEDS: Phenytoin 100 mg/4 ml Oral Susp UD PO SCH (10:11)
[2017-09-05] MEDS ORDERED: Oxycodone/Acetaminophen 5/325 mg Tab PO PRN (12:36)
[2017-09-05] MEDS ORDERED: Bupivacaine 0.5% Inj(30mL) IJ ONE (16:25)
[2017-09-05] MEDS ORDERED: MethylPREDNISolone Depo 40 mg/ml Inj IM ONE (16:25)
[2017-09-06] MEDS ORDERED: cefTRIAXone 1 gm 1 GM/100 ML BAG IVPB ONE (06:43)
[2017-09-06 06:49] LABS: HEMOGLOBIN 12.2 g/dL (14.0-18.0); MEAN CELL VOLUME 90.6 fl (80.0-105.0); MEAN CORPUSCULAR HEMOGLOBIN 29.3 pg (25.0-35.0); MEAN CORPUSCULAR HGB CONC 32.3 g/dl (31.0-37.0); RBC 4.17 10^6/uL (3.5-6.1); RED CELL DISTRIBUTION WIDTH 14.2 % (11.5-14.5); WHITE BLOOD COUNT 5.5 10^3/ul (4.5-11.0)
--- NOTE | 2017-09-06 08:16 | PROCN ---
DATE: 09/05/2017 I saw the patient a few days ago for low back pain and he was injected with Depo-Medrol, trigger point positive at the left sacroiliac joint. So that one is feeling better on the left side. Now, he states the pain is mostly on the right side, so I prepped him and sterilized the area with alcohol and swabs and injected the right sacroiliac joint for sacroiliac joint pain from arthritis and strain. His left one helped. So now we did the right side with Depo-Medrol and Marcaine. Hopefully, he will feel better with the sacroiliac joint injection on the right side. FINAL DIAGNOSIS: Sacroiliac joint strain and arthritis. Bryon Howell DO
--- NOTE | 2017-09-06 08:56 | RAD ---
PROCEDURE: CHEST RADIOGRAPH, 1 VIEW HISTORY: temp COMPARISON: 10/09/2016 FINDINGS: LUNGS: Clear. PLEURA: No pneumothorax or pleural fluid seen. CARDIOVASCULAR: Normal. OSSEOUS STRUCTURES: No significant abnormalities. VISUALIZED UPPER ABDOMEN: Normal. OTHER FINDINGS: None. IMPRESSION: No active disease.
[2017-09-06 10:29] LABS: PH,URINE 5.5 (4.7-8.0); URINE BILIRUBIN NEGATIVE (NEGATIVE); URINE BLOOD TRACE-INTACT (NEGATIVE); URINE GLUCOSE (UA) NEGATIVE (NEGATIVE); URINE LEUKOCYTE ESTERASE NEGATIVE Leu/uL (NEGATIVE); URINE PROTEIN 30 mg/dL (<30 mg/dL)
[2017-09-06 10:36] LABS: URINE APPEARANCE CLEAR (CLEAR); URINE COLOR DARK YELLOW (YELLOW)
[2017-09-06 10:51] LABS: URINE BACTERIA MANY (NEG); URINE WBC 0 - 2 /hpf (0-6)
[2017-09-06 10:52] LABS: URINE AMORPHOUS SEDIMENT FEW
--- NOTE | 2017-09-06 12:14 | PN ---
DATE: 09/05/2017 SUBJECTIVE: The patient was seen this Monday at midday in room 577, bed 1. He is still a bit uncomfortable with mid back pain. Dilaudid helps. Percocet was not effective on admission. He has been out of bed to chair. He is able to sit and was able to walk to the bathroom. This is only 48 hours post vertebral compression fracture. I explained the findings to the patient. He appreciates input from Orthopedics and pain management. We will continue conservative treatment and analgesics. If pain persists, may consider kyphoplasty with Dr. Mike Mccauley. We will concider this if he fails to follow the typical course. He may be eligible for TCU as early as tomorrow. Case management and dialysis social worker are working on authorization. Leonardo Lewis MD MTDRamiro
[2017-09-06] MEDS: HYDROmorphone 1 mg/ml ISec IVP PRN (13:37)
[2017-09-06 16:12] VITALS: BP 113/90; PULSE 76; TEMP 97.9; O2SAT 96
== END 2017-09-06 19:57 | DRG 552 ==
LOC: ED 09:55 → ERH 14:22 → 5RSO 16:23 → OBSVTOIN 09-04 08:18
PROVIDERS: ADMIT Internal Medicine; ATTEND Internal Medicine
PROC: 3E0U33Z Introduction of Anti-inflammatory into Joints, Percutaneous Approach (ICD-10-PCS; principal; 2017-09-05)
PROC: 3E0U3BZ Introduction of Anesthetic Agent into Joints, Percutaneous Approach (ICD-10-PCS; 2017-09-05)
DX: M47.898 Other spondylosis, sacral and sacrococcygeal region (principal); M48.54XA Collapsed vertebra, not elsewhere classified, thoracic region, initial encounter for fracture; G40.909 Epilepsy, unspecified, not intractable, without status epilepticus; I65.21 Occlusion and stenosis of right carotid artery; M48.061 Spinal stenosis, lumbar region without neurogenic claudication; M51.27 Other intervertebral disc displacement, lumbosacral region; I25.10 Atherosclerotic heart disease of native coronary artery without angina pectoris; Z79.82 Long term (current) use of aspirin

== ENCOUNTER 2017-09-06 19:59 | Inpatient (IN) | payer MEDICARE ==
[2017-09-06 21:57] VITALS: BMI 20.5
[2017-09-06] MEDS ORDERED: HYDROmorphone 1 mg/ml ISec IVP PRN (22:14)
[2017-09-06] MEDS ORDERED: Magnesium Hydroxide Susp 30 ml UD PO PRN (22:17)
[2017-09-06] MEDS ORDERED: Oxycodone/Acetaminophen 5/325 mg Tab PO PRN (22:18)
--- NOTE | 2017-09-07 06:22 | HP ---
HISTORY OF PRESENT ILLNESS: The patient is an 82-year-old male, who was admitted to [facility] on 09/04/2017 with complaint of sudden onset of back pain. He was found to have a compression fracture of T8 with an old compression fracture of T7 and diffuse disc bulging in the lumbar spine. He is known to have a past medical history positive for seizure disorder, the last seizure was in 1997. He also has a right-sided carotid stenosis, history of orthostatic hypotension. He did well on the medical floor, started physical therapy and today was transferred to the transitional care unit where he is now admitted for additional physical therapy. When seen today, he is awake, alert and oriented. His spirits are good; however, he does seem a little bit disgusted with the chronic pain he is experiencing. PHYSICAL EXAMINATION HEENT: Head, eyes, ears, nose and throat are unremarkable. LUNGS: Clear to auscultation and percussion. HEART: Regular. ABDOMEN: Soft, nontender. EXTREMITIES: Free of cyanosis, clubbing, or edema. PLAN: We will be continuing with the patient's medications. Pain control is of concern. We will be increasing physical therapy in hopes that the patient will be tolerating his condition. Bryon Lewis MD
[2017-09-07] MEDS: HYDROmorphone 0.5 mg/0.5 ml ISec IVP PRN (08:13)
--- NOTE | 2017-09-08 01:23 | PN ---
DATE: 09/07/2017 SUBJECTIVE: The patient was seen this evening in the Transitional Care Unit, room 304. He is resting in bed comfortably, in no acute distress while at rest, but has had pain with movement. PHYSICAL EXAMINATION: LUNGS: Shows good aeration in the lungs - right and left. HEART: Regular, not tachycardic. ABDOMEN: There is still pain on manipulation of the mid-back. ASSESSMENT AND PLAN: I spoke with the patient at length regarding compression fracture of the lower thoracic spine. I also spoke about treatment options including analgesics a little bit of time versus Kyphoplasty. Today is day #5 post compression fracture and admission to [facility]. I offered him the option of calling Dr. Mike Mccauley for possible kyphoplasty early next week. The patient is worried about performing the procedure such as this, and would like to give it a little bit more time and wait a little longer. So we will continue physical therapy for the weekend into next week. I may just put a call up to Dr. Mccauley to make him aware of the possibility of the case early next week should the symptoms continue. Leonardo Lewis MD MTDD
[2017-09-08] MEDS: HYDROmorphone 0.5 mg/0.5 ml ISec IVP PRN (08:03)
[2017-09-08] MEDS: HYDROmorphone 1 mg/ml ISec IVP PRN (15:38)
[2017-09-09] MEDS: HYDROmorphone 1 mg/ml ISec IVP PRN ×2 (12:56→19:01)
[2017-09-10] MEDS: HYDROmorphone 1 mg/ml ISec IVP PRN (13:59)
[2017-09-11] MEDS: HYDROmorphone 1 mg/ml ISec IVP PRN ×3 (06:03→20:26)
--- NOTE | 2017-09-11 07:37 | CON ---
DATE: HISTORY OF PRESENT ILLNESS: He is presently in the TCU floor, transferred here on 09/06/2017 for low back pain. I had seen him in the other hospital floor on 09/05/2017 and 09/04/2017, he had low back pain. We injected with Depo-Medrol, Marcaine both in the left and the right sacroiliac joints. He did have a favorable response but just has now arthritic pain of his low back that he is now in the TCU floor for extended physical therapy and mobilizing exercises. He lays in bed comfortable, he can move around quite well and the pain that he has is related to his osteoarthritis, which will essentially get better as the osteoarthritis helps to stabilize the spine to get a stiffed spine with less pain, but the pain would be much less as the spine stiffens up. 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 Bryon Howell DO [facility]
[2017-09-12] MEDS ORDERED: Pantoprazole 40 mg EC Tab PO ONE (20:06)
[2017-09-12] MEDS: Nystatin 100,000 Units/ml Oral Susp 5 ml UD PO SCH (21:48)
[2017-09-13 06:53] LABS: EOS # 0.3 (0.0-0.7); EOS % 5.2 % (1.5-5.0); GRAN # 4.02 (1.4-6.5); GRAN % 65.7 % (50.0-68.0); HEMOGLOBIN 12.9 g/dL (14.0-18.0); LYMPH # 1.1 (1.2-3.4); LYMPH % 18.3 % (22.0-35.0); MEAN CELL VOLUME 88.7 fl (80.0-105.0); MEAN CORPUSCULAR HEMOGLOBIN 29.1 pg (25.0-35.0); MEAN CORPUSCULAR HGB CONC 32.8 g/dl (31.0-37.0); MEAN PLATELET VOLUME 10.1 fl (7.0-11.0); MONO # 0.7 (0.1-0.6); MONO % 10.8 % (1.0-6.0); RBC 4.43 10^6/uL (3.5-6.1); RED CELL DISTRIBUTION WIDTH 14.2 % (11.5-14.5); WHITE BLOOD COUNT 6.1 10^3/ul (4.5-11.0)
[2017-09-13 07:39] LABS: ALB/GLOB RATIO 0.9 (1.1-1.8); ALBUMIN 3.4 g/dL (3.0-4.8); ALT/SGPT 33 U/L (7-56); AST/SGOT 40 U/L (17-59); BLOOD UREA NITROGEN 21 mg/dL (7-21); CALCIUM 8.9 mg/dL (8.4-10.5); GFR AFRICAN-AMERICAN > 60; GFR NON-AFRICAN AMERICAN > 60
[2017-09-13] MEDS: Pantoprazole 40 mg EC Tab PO SCH (08:08)
[2017-09-13] MEDS: HYDROmorphone 1 mg/ml ISec IVP PRN ×2 (08:15→21:24)
[2017-09-13] MEDS: Nystatin 100,000 Units/ml Oral Susp 5 ml UD PO SCH ×5 (10:25→22:04)
[2017-09-13] MEDS ORDERED: Oxycodone/Acetaminophen 5/325 mg Tab PO PRN (10:59)
--- NOTE | 2017-09-13 13:09 | PN ---
DATE: 09/12/2017 SUBJECTIVE: Patient was seen this Monday afternoon, initially admitted with compression fracture of the lumbar spine and then followed daily by Dr. Stanley Lewis. Further remainder of his stay in the Acute Care Facility and then, transferred to Transitional Care on . He is now in Transitional Care, pain has improved lony a bit, he is still somewhat uncomfortable. He is able to walk with a walker but only a reported 6 to 10 feet due to pain. Today is day #6 of his 8-day stay here in TCU. He does complain of lack of appetite and not interested in eating. He feels he is losing weight and is a bit concerned. He denies abdominal pain or pressure. He denies bad taste in the mouth or oral or throat symptoms. PHYSICAL EXAMINATION HEAD AND NECK: Unremarkable. Conjunctivae are pink. Tongue is a bit coated. ABDOMEN: Soft, nontender. IMPRESSION AND PLAN: Compression fracture of the lumbar spine in an 82-year-old male who has been on NSAIDs for a few days, complaining of loss of appetite and not interested in eating. We will discontinue the NSAIDs, ibuprofen 400 mg b.i.d. Add proton pump inhibitor and perhaps, some antacids. Add nystatin swish and swallow for the coated tongue. Ask GI to evaluate and check the [address] scans of abdomen that was done. Again discussed kyphoplasty with patient in view of continued pain. Leonardo Lewis MD URS[facility]A
--- NOTE | 2017-09-13 14:11 | RAD ---
HISTORY: cough COMPARISON: 09/06/2017 TECHNIQUE: Chest PA and lateral FINDINGS: LUNGS: No active pulmonary disease. PLEURA: No significant pleural effusion identified. No pneumothorax apparent. CARDIOVASCULAR: Normal. OSSEOUS STRUCTURES: No significant abnormalities. VISUALIZED UPPER ABDOMEN: There is elevation of left hemidiaphragm OTHER FINDINGS: None. IMPRESSION: No active disease.
[2017-09-13] MEDS: Sodium Chloride 0.45% 1,000 ML IV SCH (14:54)
--- NOTE | 2017-09-14 03:24 | CON ---
DATE: 09/13/2017 This patient was seen and evaluated earlier today. REASON FOR CONSULTATION: Epigastric discomfort and loss of appetite. HISTORY OF PRESENT ILLNESS: This is an 82-year-old patient with a past medical history of seizure disorder , h/o ETOH which he quit in 1984, admitted with acute onset of sudden back pain. The patient was found to have an acute T9 compression fracture. He had kyphoplasty done because of the continuous severe pain. The patient is on Percocet and Flexeril. The patient was on Motrin, which has been discontinued. He is complaining of abdominal discomfort in the epigastric area, poor p.o. intake. PAST SURGICAL HISTORY: Positive as above. History of nose surgery done about 30 years ago. SOCIAL HISTORY: He has a history of EtOH. No smoking. FAMILY HISTORY: Noncontributory. REVIEW OF SYSTEMS: Positive as above. PHYSICAL EXAMINATION: GENERAL: The patient is lying in the bed, not in acute distress. VITAL SIGNS: Temperature is 97.9, pulse 85, blood pressure 152/81, respirations 20, and O2 saturation 98%. HEENT: Atraumatic, anicteric. NECK: Supple. HEART: S1, S2 heard. LUNGS: Bilateral air entry present. ABDOMEN: Soft. There is some tenderness present in the epigastric area. EXTREMITIES: No edema. No cyanosis. Moves all the extremities. BACK: The patient has some pain in the back. Tenderness in the back. NEUROLOGIC: Alert and oriented. LABORATORY DATA: Hemoglobin 12.9, hematocrit 39.6, WBC 6.1, and platelets 208. Chemistry shows Alkaline phosphatase 165. IMPRESSION: 1. This is an 82-year-old patient, admitted with acute compression fracture of the T9 vertebra. The patient continues to have the pain. The patient is on Percocet, also on nonsteroidal anti-inflammatory drugs, which have been discontinued. The nausea and epigastric discomfort could be due to peptic ulcer disease or erosive esophagitis. There was a history of nonsteroidal anti-inflammatory drug use. 2. Acute compression fracture of T9 vertebra, status post kyphoplasty. 3. Other comorbidities include seizure disorder other past medical history as above. RECOMMENDATIONS: Would recommend: 1. Soft low-residue diet. 2. Continue the high-dose PPI. 3. Avoid NSAIDs. 4. Would consider an upper GI endoscopy if the symptoms remain persistent. Thank you very much for allowing me to participate in the care of your patient. Katharina Taylor MD [facility]
[2017-09-14] MEDS: Pantoprazole 40 mg EC Tab PO SCH (08:34)
[2017-09-14] MEDS: Nystatin 100,000 Units/ml Oral Susp 5 ml UD PO SCH ×4 (09:57→21:34)
[2017-09-14] MEDS: HYDROmorphone 1 mg/ml ISec IVP PRN (09:57)
[2017-09-14] MEDS: Dextrose 5%/0.45% NS 1,000 ML IV SCH ×2 (12:17→21:34)
[2017-09-14 12:34] LABS: BASO # 0.01 K/mm3 (0.0-2.0); BASO % 0.2 % (0.0-3.0); EOS # 0.2 (0.0-0.7); EOS % 4.1 % (1.5-5.0); GRAN # 3.79 (1.4-6.5); GRAN % 67.8 % (50.0-68.0); HEMOGLOBIN 12.4 g/dL (14.0-18.0); LYMPH # 0.8 (1.2-3.4); LYMPH % 14.1 % (22.0-35.0); MEAN CELL VOLUME 88.4 fl (80.0-105.0); MEAN CORPUSCULAR HEMOGLOBIN 28.8 pg (25.0-35.0); MEAN CORPUSCULAR HGB CONC 32.6 g/dl (31.0-37.0); MEAN PLATELET VOLUME 9.9 fl (7.0-11.0); MONO # 0.8 (0.1-0.6); MONO % 13.8 % (1.0-6.0); RBC 4.3 10^6/uL (3.5-6.1); WHITE BLOOD COUNT 5.6 10^3/ul (4.5-11.0)
[2017-09-14 12:41] LABS: ALBUMIN 3.4 g/dL (3.0-4.8); ALT/SGPT 36 U/L (7-56); AST/SGOT 37 U/L (17-59); BLOOD UREA NITROGEN 23 mg/dL (7-21); CALCIUM 8.7 mg/dL (8.4-10.5); GFR AFRICAN-AMERICAN > 60; GFR NON-AFRICAN AMERICAN > 60
--- NOTE | 2017-09-14 19:26 | PN ---
DATE: 09/11/2017 I would like the progress note to be read as follows, if you would be so kind. SUBJECTIVE: This patient is an 82-year-old male with a history of seizure disorder, orthostatic hypotension, right-sided carotid stenosis, who was admitted to [facility] on 09/04 with a compression fracture of T8 causing sudden onset of exclusive pain. He is also known to have an old compression fracture of T7 and diffuse disc bulging of the lumbar spine. He was transferred to the transitional care unit five days ago where he seems to be doing well on physical therapy. As per the physical therapy notes, his pain is down to level of 5/10 and he is walking 150 feet x2 with a rolling walker. His vital signs are stable. Physical exam is unchanged and however, the patient is presently complaining of pain in the back, wishing it would go away. Once again, he is thinking about kyphoplasty, but cannot make a decision to go ahead with it. We will continue to discuss with the patient and follow closely. Bryon Lewis MD
--- NOTE | 2017-09-14 19:49 | PN ---
DATE: 09/13/2017 HISTORY OF PRESENT ILLNESS: The patient is an 82-year-old male, with a history of seizure disorder, orthostatic hypotension, stenosis of right carotid artery, who was admitted on 09/04/2017 with compression fracture of T8. He is known to have an old compression fracture of T7 and diffuse disc bulging of the lumbar spine. He was treated on the floor with analgesics. He was accepted to the Transitional Care Unit for physical therapy where he is doing well, however, he does continue to complain about the back pain. PHYSICAL EXAMINATION GENERAL: When seen today, he is resting comfortably. VITAL SIGNS: Stable. LABORATORY DATA: Blood work was drawn this morning showing a white blood cell count of 6.1, hemoglobin and hematocrit of 12.9 and 39.3, platelet count is 208. Sodium is 138, potassium 4.5, blood urea nitrogen 21 and creatinine is 0.9. It is possible that the patient has finally agreed to kyphoplasty. He will be evaluated by Dr. Mike Mccauley and the kyphoplasty may very well be scheduled in a day or 2. Bryon Lewis MD
--- NOTE | 2017-09-14 19:57 | PN ---
DATE: 09/10/2017 SUBJECTIVE: The patient is an 82-year-old male with a history of seizure disorder, last seizure was in 1997. He also has right sided carotid stenosis and orthostatic hypotension. He was admitted on the 09/04/2017 with pain secondary to compression fracture of T8 rather sudden onset. He has diffuse disc bulging at the lumbar spine as well as an old compression fracture of T7. After few days on the medical floor, he was transferred to the Transitional Care Unit four days ago where he is undergoing physical therapy. The patient is rather disgruntled complaining of the chronic pain. Once again, we talked today about kyphoplasty and the patient says he is thinking about it. The patient will be reevaluated in the morning. Bryon Lewis MD
--- NOTE | 2017-09-14 20:53 | PN ---
DATE: 09/09/2017 DAILY PROGRESS NOTE SUBJECTIVE: The patient is an 82-year-old male with a history of seizure disorder, last seizure suffered in 1997, who was admitted to [facility] on 09/04/2017 with sudden onset of back pain, found to have a compression fracture of T8. He also has a history of orthostatic hypotension, carotid stenosis. He was transferred to the Transitional Care Unit 3 days ago where he is undergoing physical therapy. Reports show the patient is doing well at physical therapy; however, he seems rather upset and disgusted with his condition and his chronic pain. Yesterday, he had complained of right upper quadrant and right lower quadrant abdominal pain, today this is clear. His abdomen is soft, nontender on palpation. CAT scan of the abdomen was done and it is negative. So we are continuing to encourage physical therapy. The possibility of kyphoplasty was suggested to the patient and he states he will think about it, but does not seem to be too anxious to have it done. Bryon Lewis MD
--- NOTE | 2017-09-14 20:58 | PN ---
DATE: 09/08/2017 DAILY PROGRESS NOTE SUBJECTIVE: The patient is an 82-year-old male, who was admitted to [facility] on September 04 with sudden onset of back pain. He was felt to have a compression fracture of T8 with an old compression fracture of T7 and diffusely bulging disks in lumbar spine. He has a past medical history positive for seizure disorder, the last seizure was in 1997. He has orthostatic hypotension and right-sided carotid stenosis. He did well on the medical floor and was transferred to the Transitional Care Unit 2 days ago. He has been doing well with physical therapy; however, when seen today, he is complaining of severe exquisite right upper quadrant tenderness. He is afebrile, blood pressure is 107/60, heart rate is 68 beats per minute. On palpation of the right upper quadrant and right lower quadrant, the patient is exquisitely tender; however, bowel sounds are normal. The patient will be sent for a CAT scan because of this discomfort. Apparently, the CAT scan will have to be done as outpatient because of the TCU rules. The patient will be reevaluated in the morning once the results of the CAT scan is seen. Bryon Lewis MD
--- NOTE | 2017-09-15 04:08 | PN ---
DATE: 09/14/2017 SUBJECTIVE: This patient was seen and evaluated earlier today. The patient is still complaining of back pain, poor appetite and some epigastric discomfort. PHYSICAL EXAMINATION: VITAL SIGNS: On examination, temperature is 98.6, pulse 82, blood pressure 120/65. HEENT: Atraumatic, anicteric. NECK: Supple. HEART: S1, S2 heard. LUNGS: Bilateral air entry present. ABDOMEN: Soft. There is somewhat mild tenderness present in the epigastric area. EXTREMITIES: No cyanosis. No clubbing. LABORATORY DATA: Hemoglobin 12.4, hematocrit 38, WBC 5.6, platelets 220, BUN 23, creatinine 1.0. IMPRESSION: This 82-year-old patient was admitted with a compression fracture of the T9, status post kyphoplasty. The patient still complaints of back pain, has now reduced p.o. intake, anorexia, epigastric discomfort. The differential etiology should include peptic ulcer disease. The patient is off the NSAIDs now. We will increase the dose of the Protonix . We will change the diet to soft diet. We will continue to closely follow up with his care. Katharina Taylor MD [facility]
--- NOTE | 2017-09-15 06:01 | PN ---
DATE: 09/14/2017 DAILY PROGRESS NOTE SUBJECTIVE: Patient was seen this morning, in room 304, bed 2. He was quite uncomfortable. Unfortunately, the kyphoplasty yesterday did not provide much relief. I have discussed with Dr. Mike Mccauley. After my discussion with him, because of persistent pain, I think it best to proceed with a repeat MRI of the thoracic spine, which was done later in the day, Dr. Mccauley and I again. There is continued edema around the other thoracic vertebrae. Therefore, patient will undergo kyphoplasty today once again. PHYSICAL EXAMINATION: GENERAL: Patient was looking a little dry. HEENT: Mucous membranes were dry. VITAL SIGNS: Blood pressure was stable. LABORATORY DATA: Stat labs were drawn. Sed rate is slightly elevated. H and H good. BUN was slightly elevated, but creatinine was normal. We will begin IV fluids after seeing the results of the stat labs and in preparation for the kyphoplasty to be done later today. Leonardo Lewis MD
[2017-09-15 10:01] VITALS: BP 143/65; PULSE 74; RESP 20; TEMP 98.8; O2SAT 100
[2017-09-15] MEDS: Nystatin 100,000 Units/ml Oral Susp 5 ml UD PO SCH ×4 (12:03→22:02)
[2017-09-15] MEDS: Pantoprazole 40 mg EC Tab PO SCH (12:03)
[2017-09-15] MEDS: Dextrose 5%/0.45% NS 1,000 ML IV SCH ×2 (12:04→17:32)
[2017-09-15] MEDS: Sodium Chloride 0.45% 1,000 ML IV SCH (12:13)
[2017-09-15] MEDS: Magnesium Hydroxide Susp 30 ml UD PO ONE ×2 (12:14→12:26)
--- NOTE | 2017-09-16 03:23 | DS ---
HISTORY OF PRESENT ILLNESS: This is an 82-year-old man with relatively unremarkable past medical history. He has seizure disorder for many years related to a distant history of alcohol use. He had recently been hospitalized and found to have some degree of orthostatic hypotension. He came to the acute care facility at [facility] with severe back pain and found to have a compression fracture. He was treated conservatively with NSAIDs and antiinflammatory medicines and analgesics and now comes to the Transitional Care Unit for additional therapy and conditioning prior to discharge to home. This is the discharge summary for Nishant's stay in the Transitional Care Unit. COURSE OF HOSPITAL STAY: While in the TCU, physical therapy was attempted but he was uncomfortable and was only walking a few feet. After few days and seeing he is not progressing as expected, I spoke with the patient once again about kyphoplasty which had been entertained earlier in the acute phase of the hospital but put off for conservative approach. Because of persistent pain, this was felt to be the best option. He also complained at one time during the course of hospital stay of nausea. A CT scan had been done earlier of the abdomen and pelvis, but again was repeated with no significant abnormalities or findings. He had poor appetite. He was not taking p.o. This was a concern. He was given anywhere from 2 to 6 cans of Ensure a day. He ate Ensure but simply did not feel like eating. He was treated with nystatin for mouth and tongue symptoms. Even though very much of thrush was not cleared, it was felt this would be soothing and perhaps help with his appetite. Kyphoplasty was performed on both levels of the thoracic compression fractures seen. That provided some relief, but by today, Monday, his planned day of discharge, and this is the ninth day on the Transitional Care Unit, the last day that was approved by his insurance, he is still not eating well. I spoke with the patient at length at the bedside and confronted him about depression and frustration. He told me he sees poor progress and poor outlook for the future. He does not seem to be able to see hopeful future or returning to healthy state of activity and cruises that he enjoys going on. I spoke to his niece. I met her on a few occasions today, just like two days ago. I talked to her about my suspicion of depression; as a nurse, she seemed to agree. Patient was started on sertraline 50 mg daily. Lengthy conversations were held between case aide, manager social work, the patient, myself, and the niece regarding discharge plans. He was certainly not ready to go home as he lives alone and is highly functional at baseline and certainly far from it at this point. He was approved for a subacute rehab named [facility]. The niece was also looking at a subacute rehab in [place] and that was approved or is being applied for. In either event, the patient will be ready for discharge today, by now he is cleared. He needs to be followed from the perspective of his depression and will need a great deal of encouragement and analgesics. Because of the concerns about poor appetite and not eating, I am suspicious of peptic ulcer disease. GI consultation with Dr. Taylor concurred. Patient has been on proton pump inhibitors. H2 blockers has been added, and this will certainly need to be followed. IV fluids were given around the time of the kyphoplasty helping to boost his intake of fluids. Patient brought to the subacute with close followup. His niece who is a registered nurse will follow up, and I will keep in touch with her as well. If there are any questions, they can always call me. FINAL DISCHARGE DIAGNOSES: 1. Pain and deconditioning. 2. Compression fracture of T8 and T9 with kyphoplasty performed. 3. Abdominal symptoms of lost appetite without pain, hematemesis or melena, most likely related to gastritis, peptic ulcer disease and possibly nonsteroidal antiinflammatory drugs. 4. 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 5. Seizure disorder, well controlled with Dilantin and Neurontin. 6. History of orthostatic hypotension, well controlled with Florinef 0.1 mg daily. PLAN: Discharged to subacute rehab. Will continue PPIs and H2, seizure medicines, Dilantin, and Neurontin as well as fludrocortisone. Analgesics on a cautious basis based on his depression. Would continue sertraline. Zoloft 50 mg started today. Leonardo Lewis MD
== END 2017-09-15 23:15 | DRG 560 ==
LOC: TRCU 19:59
PROVIDERS: ADMIT Internal Medicine; ATTEND Internal Medicine
PROC: F07Z9ZZ Gait Training/Functional Ambulation Treatment (ICD-10-PCS; principal; 2017-09-07)
PROC: F08Z4ZZ Home Management Treatment (ICD-10-PCS; 2017-09-07)
DX: M48.54XD Collapsed vertebra, not elsewhere classified, thoracic region, subsequent encounter for fracture with routine healing (principal); Z98.890 Other specified postprocedural states; B37.0 Candidal stomatitis; G40.909 Epilepsy, unspecified, not intractable, without status epilepticus; I65.21 Occlusion and stenosis of right carotid artery; I95.1 Orthostatic hypotension; F32.9 Major depressive disorder, single episode, unspecified; M47.816 Spondylosis without myelopathy or radiculopathy, lumbar region; G89.29 Other chronic pain; R63.0 Anorexia

== ENCOUNTER 2017-09-13 14:41 | Day surgery (SDC) | payer MEDICARE ==
[2017-09-13 14:31] VITALS: BMI 20.4
[2017-09-13] MEDS ORDERED: Lidocaine 2% Inj (20ml) ONE (14:49)
[2017-09-13] MEDS ORDERED: Iohexol 350mgl/ml 50 ML ONE (14:49)
[2017-09-13] MEDS ORDERED: Midazolam 2 MG/2 ML VIAL ONE ×2 (15:24→16:02)
[2017-09-13] MEDS ORDERED: Oxycodone/Acetaminophen 5/325 mg Tab PO PRN (16:36)
[2017-09-13] MEDS ORDERED: Sodium Chloride 0.45% 1,000 ML IV SCH (16:45)
[2017-09-13 17:04] VITALS: O2SAT 98
--- NOTE | 2017-09-13 17:15 | VASCULAR ---
PROCEDURE: 1. T9 kyphoplasty. 2. T9 vertebral body biopsy. HISTORY: Severe, refractory back pain. Unresponsive to bed rest and analgesics. Acute T9 compression fracture PHYSICIAN(S): Mike Mccauley MD. TECHNIQUE: he relative risks and indications of the procedure were explained to the patient and informed written consent obtained. The patient was placed prone on the arteriography table and the thoracolumbar spine prepped and draped in the usual sterile fashion. Conscious sedation and monitoring were provided throughout the procedure by a nurse. Preliminary fluoroscopy revealed the 2 compression fractures were at T8 and T9 -counting from below. The T8 compression fracture was chronic and healed by MRI. The T9 vertebral body was carefully localized with fluoroscopy. The skin and soft tissues were anesthetized with 1% Xylocaine. Under direct fluoroscopic guidance, bilateral transpedicular bone needles were placed into the posterior aspect of the T9 vertebral body. Through the right needle, a biopsy of the [id number] body was performed. The specimen was sent to histology. Next bilateral 10 mm bone balloons were placed in the anterior and inferior portion of the T9 vertebral body. They were inflated to approximately 3 cc apiece with dilute contrast. The balloons were removed and 6.0 cc of barium-impregnated PMMA cement instilled into the T9 vertebral body. No extravasation was seen. The bone needles were removed. The patient tolerated the procedure well. IMPRESSION: 1. Fluoroscopically-guided T9 kyphoplasty. 2. Fluoroscopic T9 vertebral body biopsy.
[2017-09-13 17:32] VITALS: BP 152/81; PULSE 85; RESP 20; TEMP 97.9
[2017-09-14] MEDS ORDERED: Lidocaine 2% Inj (20ml) ONE (14:43)
[2017-09-14] MEDS ORDERED: Midazolam 2 MG/2 ML VIAL ONE (14:43)
[2017-09-14] MEDS ORDERED: Iohexol 350mgl/ml 50 ML ONE (14:45)
== END 2017-09-13 17:56 ==
LOC: SDSVAS 14:41
PROVIDERS: ATTEND Radiology Vascular & Interventional Radiology
DX: M48.54XA Collapsed vertebra, not elsewhere classified, thoracic region, initial encounter for fracture (principal)
CPT/HCPCS: 22513; 88305; 88311; 99152; 99153; C1713; J1644; J2250; J2405; J3010; J7030; Q9967

== ENCOUNTER 2017-09-14 15:09 | Day surgery (SDC) | payer MEDICARE ==
[2017-09-13 14:31] VITALS: BMI 20.4
[2017-09-14] MEDS ORDERED: Midazolam 2 MG/2 ML VIAL ONE (15:27)
[2017-09-14] MEDS ORDERED: DiphenhydrAMINE 50 mg/ml Inj ONE (16:15)
[2017-09-14] MEDS ORDERED: Oxycodone/Acetaminophen 5/325 mg Tab PO PRN (16:57)
[2017-09-14] MEDS ORDERED: Sodium Chloride 0.45% 1,000 ML IV SCH (17:00)
--- NOTE | 2017-09-14 17:11 | VASCULAR ---
PROCEDURE: 1. T8 kyphoplasty HISTORY: Severe, refractory back pain. Unresponsive to bed rest and analgesics. Recent T9 kyphoplasty. Persistent severe pain with acute T8 fracture noted on MRI PHYSICIAN(S): Mike Mccauley MD. TECHNIQUE: he relative risks and indications of the procedure were explained to the patient and his knees and informed written consent obtained. The patient was placed prone on the arteriography table and the thoracolumbar spine prepped and draped in the usual sterile fashion. Conscious sedation and monitoring were provided throughout the procedure by a nurse. The T8 vertebral body was carefully localized with fluoroscopy. The skin and soft tissues were anesthetized with 1% Xylocaine. Under direct fluoroscopic guidance, bilateral transpedicular bone needles were placed into the posterior aspect of the T8 vertebral body. Next bilateral 15mm bone balloons were placed in the superior and anterior portion of the T8 vertebral body. They were inflated to approximately 3 cc apiece with dilute contrast. The balloons were removed and 4.5 cc of barium-impregnated PMMA cement instilled into the T8 vertebral body. No extravasation was seen. The bone needles were removed. The patient tolerated the procedure well. IMPRESSION: 1. Fluoroscopically-guided T8 kyphoplasty.
[2017-09-14 17:31] VITALS: O2SAT 98
[2017-09-14 18:06] VITALS: PULSE 80; RESP 18; TEMP 98.3
[2017-09-14 18:33] VITALS: BP 135/71
== END 2017-09-14 18:30 | disposition home or self-care (01) ==
LOC: SDSVAS 15:09
PROVIDERS: ATTEND Radiology Vascular & Interventional Radiology
DX: M48.54XA Collapsed vertebra, not elsewhere classified, thoracic region, initial encounter for fracture (principal)
CPT/HCPCS: 22513; J1200; J2405; J3010; J7030

== ENCOUNTER 2018-08-13 11:25 | Outpatient (CLI) | payer MEDICARE | END 2018-08-13 11:26 | disposition home or self-care (01) | LOC: RAD 11:25 ==

== ENCOUNTER 2018-08-16 15:01 | Inpatient (IN) | payer MEDICARE | END 2018-08-21 17:55 | disposition skilled nursing facility (03) | DRG 312 | LOC: ED 15:01 → ERH 18:50 → 5RNO 22:51 | DX: I95.1 Orthostatic hypotension (principal); E86.0 Dehydration; G40.909 Epilepsy, unspecified, not intractable, without status epilepticus; S80.01XA Contusion of right knee, initial encounter; R26.81 Unsteadiness on feet; I25.10 Atherosclerotic heart disease of native coronary artery without angina pectoris; I65.21 Occlusion and stenosis of right carotid artery; M54.12 Radiculopathy, cervical region; R29.6 Repeated falls; W01.0XXA Fall on same level from slipping, tripping and stumbling without subsequent striking against object, initial encounter; Y92.009 Unspecified place in unspecified non-institutional (private) residence as the place of occurrence of the external cause; Z79.82 Long term (current) use of aspirin ==